=== PATIENT | male | born 1975 | race Caucasian/White ===

== ENCOUNTER 2019-06-12 14:33 | Emergency (ER) | payer SELFPAY ==
--- NOTE | 2019-06-12 14:45 | PDOC ---
History of Present Illness - General Chief Complaint: Alcohol intoxication Stated Complaint: ALCOHOL INTOXICATION - History of Present Illness Initial Comments: The pt is a 43M w/ no reported PMH who presents for evaluation of alcohol intoxication. The pt reports daily drinking for 1 month since his mother . He states he drinks tequila. Denies tobacco or illicit drug use. Denies withdrawal symptoms. Denies history of withdrawal or seizure. Pt states he drank 5 'large' bottles of tequila today. Pt denies fall but is unsure if he passed out today. Denies pain for physical complaints. 06/12/19 14:44 Past History - Past Medical History Allergies/Adverse Reactions: Allergies Allergy/AdvReac Type Severity Reaction Status Date / Time No Known Allergies Allergy Verified 06/12/19 19:58 Home Medications: Ambulatory Orders NK [No Known Home Medication] 06/12/19 Review of Systems - Review of Systems Able to Perform ROS?: Yes Comments:: GENERAL/CONSTITUTIONAL: No fever or chills. No weakness HEAD, EYES, EARS, NOSE AND THROAT: No change in vision. No change in hearing. No sore throat CARDIOVASCULAR: No chest pain or shortness of breath RESPIRATORY: Denies cough, hemoptysis GASTROINTESTINAL: No nausea, vomiting, diarrhea or constipation GENITOURINARY: No dysuria, frequency, or change in urination MUSCULOSKELETAL: No joint or muscle swelling or pain. No neck or back pain SKIN: No rash NEUROLOGIC: No headache, vertigo, loss of consciousness, or change in strength/ sensation ENDOCRINE: No increased thirst. No abnormal weight change HEMATOLOGIC/LYMPHATIC: No anemia, easy bleeding, or history of blood clots ALLERGIC/IMMUNOLOGIC: No hives or skin allergy 06/12/19 14:45 Is the patient limited Syriac proficient: No *Physical Exam - Physical Exam GENERAL: Awake, alert, and oriented to person/place/time, in no acute distress HEAD: No signs of trauma, normoc ephalic, atraumatic EYES: PERRLA, EOMI, sclera anicteric, conjunctiva clear ENT: Hearing grossly normal, nares patent, oropharynx clear without exudates. Moist mucosa LUNGS: No distress, speaks in full sentences, clear to auscultation bilaterally HEART: Regular rate and rhythm, normal S1 and S2, no murmurs appreciated, peripheral pulses normal and equal bilaterally ABDOMEN: Soft, nontender, normoactive bowel sounds. No guarding, no rebound EXTREMITIES: Normal inspection, Normal range of motion, no edema. No clubbing or cyanosis NEUROLOGICAL: Cranial nerves II through XII grossly intact. Normal speech, normal gait, no focal sensorimotor deficits SKIN: Warm, Dry 06/12/19 14:45 ED Treatment Course - LABORATORY CBC & Chemistry Diagram: 06/12/19 15:12 06/12/19 15:06 - RADIOLOGY Radiograph Interpretation: THIS IS A PRELIMINARY REPORT FROM [facility] DATE OF SERVICE: 2019-06-12 16:58:05 EXAM: CT HEAD WITHOUT CONTRAST IMPRESSION: No evidence of acute intracranial abnormality THIS IS A PRELIMINARY REPORT FROM [facility] DATE OF SERVICE: 2019-06-12 16:55:38 EXAM: CT Cervical Spine without IV contrast IMPRESSION: Motion artifact moderately limits evaluation of C5-C7. No acute fracture or subluxation in the cervical spine 06/12/19 17:50 RAD/CHEST PA & LAT There are no prior studies for comparison. There is a weak inspiratory effort with a normal mediastinum and clear lung verdugo. An acute process is not seen. The angles are sharp and the soft tissues are intact. There are some degenerative changes with wedging. Impression: Weak inspiration. Degenerative changes with wedging. 06/12/19 17:56 Medical Decision Making - Medical Decision Making The pt is a 43M w/ no reported PMH who presents for evaluation of alcohol intoxication. ED Course CMP, CBC, EtOH level ECG CT head and c-spine Pt states he would like detox 06/12/19 14:46 ECG w/ sinus tachycardia; HR 116; QTc 483; no axis deviation; no JUVENTINO No leukocytosis No anemia Hypokalemia noted and repleted Lytes otherwise unremarkable No BILLY LFTs wnl 06/12/19 16:41 CT head and c-spine w/o acute pathology UA pending 06/12/19 17:52 Pt given Tylenol 975mg PO once for fever Influenza sent 06/12/19 18:37 Plan for D/C to [facility] Discharge instructions and return precautions given Patient in agreement and verbalized understanding Dispo: Home Discharge - Discharge Information Problems reviewed: Yes Clinical Impression/Diagnosis: Alcohol intoxication Qualifiers: Complication of substance-induced condition: with unspecified complication Qualified Code(s): F10.929 - Alcohol use, unspecified with intoxication, unspecified Condition: Stable Disposition: HOME - Admission No - Follow up/Referral - Patient Discharge Instructions Patient Printed Discharge Instructions: DI for Alcohol Abuse, DI for Viral Syndrome Additional Instructions: You were seen in the Emergency Department for evaluation of alcohol intoxication. Your potassium was low and repleted. You likely have a viral syndrome. You may take Tylenol 650mg every 6 hours as needed for fever. Review the handout provided at discharge. Be sure to frequently wash your hands. Avoid close contact with young children, elderly, or weak immune system. Follow up with your primary care doctor within a week. Lo vieron en el departamento de emergencias para evaluar la intoxicacin por alcohol. Gama potasio estaba bajo y repleto. Es probable que tenga un sndrome viral. Puede senait Tylenol 650mg cada 6 horas segn sea necesario para la fiebre. Revise el folleto proporcionado al marissa. Asegrese de lavarse las abbie con frecuencia. Evite el contacto cercano con nios pequeos, ancianos o un sistema inmunitario dbil. [place] un seguimiento con gama mdico de atencin primaria dentro de [place] semana. Print Language: SETSWANA - Post Discharge Activity
[2019-06-12] MEDS ORDERED: SODIUM CHLORIDE 0.9% 500 ML INFUS.BAG IV ONE ×2 (15:06→18:02)
[2019-06-12 15:19] LABS: BASO % 0.4 % (0-2.0); EOS % 0.1 % (0-4.5); HEMATOCRIT 47.1 % (35.4-49); HEMOGLOBIN 15.9 GM/dL (11.7-16.9); LYMPH % 24.3 % (8-40); MCH 32.2 pg (25.7-33.7); MCHC 33.9 g/dl (32.0-35.9); MEAN CELL VOLUME 95.1 fl (80-96); MEAN PLT VOLUME 7.5 fl (7.5-11.1); MONO % 4.3 % (3.8-10.2); NEUT % 70.9 % (42.8-82.8); PLATELET COUNT 173 K/MM3 (134-434); RBC 4.95 M/mm3 (4.00-5.60); RDW 13.8 % (11.9-15.9); WHITE BLOOD COUNT 6.5 K/mm3 (4.0-10.0)
[2019-06-12 15:33] VITALS: BMI 24.8
[2019-06-12 15:51] LABS: ALBUMIN 4.5 g/dl (3.4-5.0); BILIRUBIN,TOTAL 0.6 mg/dL (0.2-1); BLOOD UREA NITROGEN 14.6 mg/dL (7-18); CALCIUM 8.5 mg/dL (8.5-10.1); CREATININE 0.9 mg/dL (0.55-1.3); POTASSIUM 3.3 mmol/L (3.5-5.1); TOT PROT 8.3 g/dl (6.4-8.2)
[2019-06-12] MEDS ORDERED: FOLIC ACID 1 MG TABLET (FP) PO ONE (15:59)
[2019-06-12] MEDS ORDERED: MULTIVITAMINS (DAILY MVI) TABLET (FP) PO ONE (15:59)
[2019-06-12] MEDS ORDERED: THIAMINE HCL 100 MG TABLET (FP) PO ONE (15:59)
--- NOTE | 2019-06-12 16:00 | PDOC ---
Documentation entered by Jayro Serrano SCRIBE, acting as scribe for Sylvia Chirinos MD. Sylvia Chirinos MD: This documentation has been prepared by the Zach blanco Daniel, SCRIBE, under my direction and personally reviewed by me in its entirety. I confirm that the documentation accurately reflects all work, treatment, procedures, and medical decision making performed by me. Attending Attestation - Resident Resident Name: Gavin Solorzano - ED Attending Attestation I have performed the following: I have examined & evaluated the patient, The case was reviewed & discussed with the resident, I agree w/resident's findings & plan, Exceptions are as noted - HPI HPI: 06/12/19 15:40 The patient is a 43 year old male with no past medical history here today for evaluation of alcohol intoxication. The patient reports that he has been drinking daily for 1 month due to the of his mother. He reports that his drink of choice is tequila and drinks 5 large bottles a day. He denies any withdrawal symptoms, seizures, tobacco use, or illicit drug use. pt is here today because he would like help with his drinking. Patient denies headache, lightheadedness. Denies fever, chills. Denies chest pain, shortness of breath. Denies nausea, vomiting, diarrhea, abdominal pain. Allergies: NKA 06/12/19 15:55 - Physicial Exam PE: 06/12/19 15:56 awake alert lungs clear bilat heart reg tachycardia. abd soft nt nd ext wwp. no edema. no calf tendereness. alert oriented x 3. - Medical Decision Making 06/12/19 15:56 43 yo male no pmhx here with one month heavy drinking daily tequila. denies other drug use. pt states denies fall, but unsure if he may have fainted. was found down by EMS. no other complaints. labs drawn and pending. pt innitially found to be tachycardic with heart rate of 130. states his last drink was just prior to arrival. ekg sinus tachycardia 116. will treat with thiamine, folate, multivitamin. will likely r/o electrolyte abnormality, tox screen possible transfer to [facility] for detox. cxr to r/o infection as low grade fever 100.1 06/12/19 16:01 etoh level 305, found to be hypokalemic 3.2 will give 40 meq kdur.
[2019-06-12] MEDS ORDERED: POTASSIUM CHLORIDE TABS 20 MEQ TABLET.ER (FP) PO ONE ×2 (16:01→16:05)
[2019-06-12] MEDS ORDERED: THIAMINE HCL 100 MG TABLET (FP) ONE (16:05)
[2019-06-12] MEDS ORDERED: FOLIC ACID 1 MG TABLET (FP) ONE (16:05)
[2019-06-12] MEDS ORDERED: ACETAMINOPHEN 325 MG TABLET (FP) PO ONE (18:02)
[2019-06-12] MEDS ORDERED: ACETAMINOPHEN 325 MG TABLET (FP) ONE (18:03)
[2019-06-12 18:11] VITALS: BP 153/94; PULSE 96; TEMP 100.9
--- NOTE | 2019-06-13 09:43 | EKG ---
Test Reason : Blood Pressure : / mmHG Vent. Rate : 116 BPM Atrial Rate : 116 BPM P-R Int : 138 ms QRS Dur : 084 ms QT Int : 348 ms P-R-T Axes : 044 071 026 degrees QTc Int : 483 ms SINUS TACHYCARDIA OTHERWISE NORMAL ECG NO PREVIOUS ECGS AVAILABLE Confirmed by BAILEY RODRIGUEZ MD ([id number]) on 06/13/2019 9:43:20 AM Referred By: Confirmed By:BAILEY RODRIGUEZ MD
== END 2019-06-12 18:50 | disposition home or self-care (01) ==
LOC: JER 14:33
DX: F10.220 Alcohol dependence with intoxication, uncomplicated (principal); Y90.8 Blood alcohol level of 240 mg/100 ml or more
CPT/HCPCS: 36415; 70450-TC; 71046-TC-FY; 72125-TC; 80053; 80307; 85025; 87804; 93005; 93010; 99283-25

== ENCOUNTER 2019-06-12 19:29 | Inpatient (IN) | payer SELFPAY ==
[2019-06-12 19:57] VITALS: BMI 24.8
--- NOTE | 2019-06-12 20:08 | HP ---
CIWA Score Nausea/Vomitin-Mild Nausea/No Vomiting Muscle Tremors: 5 Anxiety: 4-Mod. Anxious/Guarded Agitation: 4-Moderately Restless Paroxysmal Sweats: 3 Orientation: 3-Disoriented Date>2 days Tacttile Disturbances: 0-None Auditory Disturbances: 0-None Visual Disturbances: 3-Moderate Sensitivity (to lights) Headache: 0-None Present CIWA-Ar Total Score: 23 - Admission Criteria OASAS Guidelines: Admission for Medically Managed Detox: Requires at least one of the followin. CIWA greater than 12 2. Seizures within the past 24 hours 3. Delirium tremens within the past 24 hours 4. Hallucinations within the past 24 hours 5. Acute intervention needed for co occurring medical disorder 6. Acute intervention needed for co occurring psychiatric disorder 7. Severe withdrawal that cannot be handled at a lower level of care (continued vomiting, continued diarrhea, abnormal vital signs) requiring intravenous medication and/or fluids 8. Patient presents the following: CIWA greater than 12, Acute intervention needed for co-occurring med or psych disorder (referred by aleksandr after presenting with alcohol intoxication and elevated b/p) Admission Criteria Met: Admission criteria met Admitting History and Physical - Smoking History Smoking history: Never smoked Have you smoked in the past 12 months: No - Alcohol/Substance Use Hx Alcohol Use: No Admission ROS BHS - HPI Chief Complaint: referred for alcohol detox Allergies/Adverse Reactions: Allergies Allergy/AdvReac Type Severity Reaction Status Date / Time No Known Allergies Allergy Verified 06/12/19 19:58 History of Present Illness: here for alcohol detox. client is referred by aleksandr after biba for alcohol intoxication. he has since been medically cleared and referred. drinks daily but reports heavy binging for the past 1 month due of mother. 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 hx/o seizures as a child unrelated to alcohol. denies any significant clean time denies any other pmhx.. lives with friends, employed, denies legals Exam Limitations: Language Barrier (nepalese speaking) - Ebola screening Have you traveled outside of the country in the last 21 days: No (N) Have you had contact with anyone from an Ebola affected area: No - Review of Systems Constitutional: Chills, Loss of Appetite, Night Sweats, Changes in sleep EENT: reports: No Symptoms Reported Respiratory: reports: No Symptoms reported Cardiac: reports: No Symptoms Reported GI: reports: Nausea, Vomiting, Indigestion, Abdominal cramping : reports: No Symptoms Reported Musculoskeletal: reports: No Symptoms Reported Integumentary: reports: Flushing, Sweating Neuro: reports: Seizure (hx as a child), Tremors (r/t withdrawal) Endocrine: reports: No Symptoms Reported Hematology: reports: No Symptoms Reported Psychiatric: reports: No Sypmtoms Reported, Anxious, Depressed Other Systems: Reviewed and Negative Patient History - Patient Medical History Hx Anemia: No Hx Asthma: No Hx Chronic Obstructive Pulmonary Disease (COPD): No Hx Cancer: No Hx Cardiac Disorders: No Hx Congestive Heart Failure: No Hx Hypertension: No Hx Hypercholesterolemia: No Hx Pacemaker: No HX Cerebrovascular Accident: No Hx Seizures: Yes (as child) Hx Dementia: No Hx Diabetes: No Hx Gastrointestinal Disorders: Yes (gerd) Hx Liver Disease: No Hx Genitourinary Disorders: No Hx Sexually Transmitted Disorders: No Hx Renal Disease (ESRD): No Hx Thyroid Disease: No Hx Human Immunodeficiency Virus (HIV): No Hx Hepatitis C: No Hx Depression: No Hx Suicide Attempt: No Hx Bipolar Disorder: No Hx Schizophrenia: No Other Medical History: denies - Patient Surgical History Past Surgical History: No - PPD History Previous Implant?: Yes Documented Results: Negative w/o proof Implanted On Prior [facility] Admission?: No PPD to be Administered?: Yes - Smoking Cessation Smoking history: Former smoker Have you smoked in the past 12 months: No If you are a former smoker, when did you quit?: 20 Cigars Per Day: 0 Hx Chewing Tobacco Use: No Initiated information on smoking cessation: No - Substance & Tx. History Hx Alcohol Use: Yes Hx Substance Use: Yes Substance Use Type: Alcohol Hx Substance Use Treatment: No - Substances abused Alcohol Substance route: Oral Frequency: Daily Amount used: 5 BOTTLE VODKA 12OZ Age of first use: 33 Date of last use: 06/11/19 Admission Physical Exam BHS - Physical General Appearance: Yes: Moderate Distress (active vomitting, and dry heaving), Alcohol on Breath, Tremorous, Sweating, Anxious, Other (nepalese speaking) HEENTM: Yes: EOMI, Normocephalic, Normal Voice, ROSE[place]N, Pharynx Normal, Rhinorrhea Respiratory: Yes: Chest Non-Tender, Lungs Clear, Normal Breath Sounds, No Respiratory Distress, No Accessory Muscle Use Neck: Yes: No masses,lesions,Nodules, Supple, Trachea in good position Breast: Yes: Breasts Symetrical Cardiology: Yes: Regular Rhythm, S1, S2, Tachycardia Abdominal: Yes: Normal Bowel Sounds, Non Tender, Soft, Protuberent Genitourinary: Yes: Within Normal Limits Back: Yes: Normal Inspection Musculoskeletal: Yes: Other (unsteady gait) Extremities: Yes: Normal Range of Motion, Non-Tender, Tremors (tongue fasiculations also noted) Neurological: Yes: Alert, Motor Strength 5/5, Confused (about date), Depressed Affect Integumentary: Yes: Diaphoresis, Moist, Other (flushed) Lymphatic: Yes: Within Normal Limits - Diagnostic (1) Alcohol dependence with withdrawal, unspecified Current Visit: Yes Status: Acute Qualifiers: Complication of substance-induced condition: with unspecified complication Qualified Code(s): F10.239 - Alcohol dependence with withdrawal, unspecified (2) Fasciculation of tongue Current Visit: Yes Status: Acute (3) Risk for falls Current Visit: Yes Status: Acute (4) Irish speaking patient Current Visit: Yes Status: Chronic (5) Elevated blood pressure reading Current Visit: Yes Status: Acute (6) Alcohol intoxication Current Visit: Yes Status: Acute Qualifiers: Complication of substance-induced condition: with unspecified complication Qualified Code(s): F10.929 - Alcohol use, unspecified with intoxication, unspecified Comment: elevated b/p Cleared for Admission S - Detox or Rehab [facility] Level of Care: Medically Managed Detox Regimen/Protocol: Librium Claeared for Rehab Admission: No Breathalyzer - Breathalyzer Breathalyzer: 0.124 Urine Drug Screen - Test Device Lot number: [id number] Expiration date: 12/29/20 - Control Is test valid?: Yes - Results Drug screen NEGATIVE: Yes Inpatient Rehab Admission - Rehab Decision to Admit Inpatient rehab admission?: No
[2019-06-12] MEDS ORDERED: BISMUTH SUBSALICYLATE 524 MG/30 ML UD PO PRN (20:14)
[2019-06-12] MEDS ORDERED: METHOCARBAMOL 500 MG TABLET PO PRN (20:14)
[2019-06-12] MEDS ORDERED: MELATONIN 5 MG TABLETS PO PRN (20:14)
[2019-06-12] MEDS ORDERED: chlordiazePOXIDE HCL 25 MG CAPSULE PO ONE (20:14)
[2019-06-12] MEDS ORDERED: IBUPROFEN 400 MG TABLET (FP) PO PRN (20:14)
[2019-06-12] MEDS ORDERED: MAG HYDROX/AL HYDROX/SIMETH 30 ML UNIT-DOSE CUP PO PRN (20:14)
[2019-06-12] MEDS ORDERED: ACETAMINOPHEN 325 MG TABLET (FP) PO PRN ×2 (20:14)
[2019-06-12] MEDS ORDERED: DICYCLOMINE HCL 10 MG CAPSULE PO PRN (20:14)
[2019-06-12] MEDS ORDERED: MAGNESIUM HYDROX 2400MG/30ML ORAL SUSPENSION 30 ML CUP PO PRN (20:14)
[2019-06-12] MEDS ORDERED: MAGNESIUM CITRATE 300 ML BOTTLE PO PRN (20:14)
[2019-06-12] MEDS ORDERED: MENTHOL/PHENOL 1 EACH UD MM PRN (20:14)
[2019-06-12] MEDS ORDERED: guaiFENesin 200 MG/10 ML 10 ML UNIT-DOSE CUPS PO PRN (20:14)
[2019-06-12] MEDS ORDERED: P-EPHED 60MG/TRIPROLIDI 2.5MG TABLET PO PRN (20:14)
[2019-06-12] MEDS ORDERED: TRIMETHOBENZAMIDE HCL 200MG/2ML INJ IM PRN (20:18)
[2019-06-12] MEDS: cloNIDine HCL 0.1 MG TABLET PO PRN (20:56)
[2019-06-12] MEDS: PANTOPRAZOLE 20 MG TABLET PO SCH (20:58)
[2019-06-12] MEDS ORDERED: TRIMETHOBENZAMIDE HCL 200MG/2ML INJ IM ONE (21:00)
[2019-06-12] MEDS: chlordiazePOXIDE HCL 25 MG CAPSULE PO SCH (22:15)
[2019-06-12] MEDS: THIAMINE HCL 100 MG TABLET (FP) PO SCH (22:15)
[2019-06-12] MEDS: hydrOXYzine PAMOATE 25 MG CAPSULE (FP) PO PRN (23:11)
[2019-06-13] MEDS: chlordiazePOXIDE HCL 25 MG CAPSULE PO SCH ×4 (05:49→22:10)
[2019-06-13] MEDS: cloNIDine HCL 0.1 MG TABLET PO PRN ×2 (07:48→17:18)
--- NOTE | 2019-06-13 09:16 | CONSULT ---
[facility] Psychiatric Consult - Data Date of interview: 06/13/19 Admission source: PCP Identifying data: Mr Eden Catherine is a 43 years old [place] male, father of 4 children, domiciled seeking detox treatment alcohol Substance Abuse History: Reports history of alcohol use. Refer to addiction counselor's summary for further information Medical History: Significant for sizure disorder as a child, GERD. Psychiatric History: Denies history of previous psychiatric treatment. However, reports sleeping poorly Physical/Sexual Abuse/Trauma History: Denies history of abuse as a child or DV relationship as an adult Mental Status Exam - Mental Status Exam Alert and Oriented to: Time, Place, Person Cognitive Function: Fair Patient Appearance: Well Groomed Mood: Hopeful, Euthymic Patient Behavior: Cooperative Speech Pattern: Clear Voice Loudness: Normal Thought Process: Intact, Goal Oriented Thought Disorder: Not Present Hallucinations: Denies Suicidal Ideation: Denies Homicidal Ideation: Denies Insight/Judgement: Poor Sleep: Poorly Appetite: Good Muscle strength/Tone: Normal Gait/Station: Normal Psychiatric Findings - Problem List ([place] 1, 2,3) (1) Alcohol-induced sleep disorder Current Visit: Yes Status: Acute (2) Alcohol dependence with withdrawal, unspecified Current Visit: Yes Status: Acute Qualifiers: Complication of substance-induced condition: with unspecified complication Qualified Code(s): F10.239 - Alcohol dependence with withdrawal, unspecified (3) GERD (gastroesophageal reflux disease) Current Visit: Yes Status: Acute (4) Juvenile seizure disorder Current Visit: Yes Status: Resolved - Initial Treatment Plan Initial Treatment Plan: 1) Start Belsomra 10 mg po HS prn for insomnia. 2) Continue inpatient detoxification
[2019-06-13] MEDS: PRENATAL VITAMINS W/ FOLIC ACID TABLET (FP) PO SCH (10:12)
--- NOTE | 2019-06-13 11:37 | PN ---
S CIWA - CIWA Score Nausea/Vomitin-Mild Nausea/No Vomiting Muscle Tremors: 4-Moderate,w/Arms Extend Anxiety: 3 Agitation: 3 Paroxysmal Sweats: 2 Orientation: 2-Disoriented Date<2 days Tacttile Disturbances: 0-None Auditory Disturbances: 0-None Visual Disturbances: 1-Very Mild Sensitivity Headache: 2-Mild CIWA-Ar Total Score: 18 BHS Progress Note (SOAP) Subjective: 43 years old male admitted on 06/12/19 for alcool withdrawal sx management treating with librium detox regimen ate 10% breakfast ensure supplement Objective: 06/13/19 11:39 Vital Signs Temperature 99.0 F 06/13/19 09:23 Pulse Rate 96 H 06/13/19 09:23 Respiratory Rate 18 06/13/19 09:23 Blood Pressure 147/87 06/13/19 09:23 O2 Sat by Pulse Oximetry (%) Laboratory Last Values RPR Titer Nonreactive (NONREACTIVE) 06/13/19 08:00 06/13/19 11:41 lab see ER 06/12/19 report low K+ Assessment: 06/13/19 11:46 alcohol withdrawal Plan: librium regimen
[2019-06-13] MEDS ORDERED: POTASSIUM CHLORIDE ORAL LIQUID 20 MEQ/15 ML PO ONE (11:43)
[2019-06-13 12:17] LABS: EPI CELLS 1.9 /HPF (0-5/HPF); HYALINE CASTS 8 /lpf (0-8); URINE APPEARANCE CLEAR; URINE BACTERIA 2.4 /hpf (NEGATIVE); URINE BILIRUBIN 1+ (NEGATIVE); URINE COLOR DK YELLOW; URINE GLUCOSE (UA) NEGATIVE (NEGATIVE); URINE KETONE 3+ (NEGATIVE); URINE LEUK ESTERASE NEGATIVE (NEGATIVE); URINE NITRITE NEGATIVE (NEGATIVE); URINE PROTEIN 2+ (NEGATIVE); URINE WBC 1 /hpf (0-5)
[2019-06-13] MEDS: PANTOPRAZOLE 20 MG TABLET PO SCH (13:17)
[2019-06-13] MEDS: POTASSIUM CHLORIDE ORAL LIQUID 20 MEQ/15 ML PO SCH (13:17)
[2019-06-13] MEDS: chlordiazePOXIDE HCL 25 MG CAPSULE PO PRN (13:20)
[2019-06-13 14:17] LABS: URINE RBC 6.5 /hpf (0-4)
[2019-06-13 14:18] LABS: URINE CRYSTALS PRESENT /hpf
[2019-06-13] MEDS: THIAMINE HCL 100 MG TABLET (FP) PO SCH (22:10)
[2019-06-13] MEDS: SUVOREXANT 10 MG TABLET PO PRN (22:11)
[2019-06-14] MEDS: chlordiazePOXIDE HCL 25 MG CAPSULE PO SCH ×4 (05:29→22:00)
[2019-06-14] MEDS: POTASSIUM CHLORIDE ORAL LIQUID 20 MEQ/15 ML PO SCH (10:13)
[2019-06-14] MEDS: PRENATAL VITAMINS W/ FOLIC ACID TABLET (FP) PO SCH (10:13)
[2019-06-14] MEDS: PANTOPRAZOLE 20 MG TABLET PO SCH (10:13)
--- NOTE | 2019-06-14 12:44 | EKG ---
Test Reason : Blood Pressure : / mmHG Vent. Rate : 080 BPM Atrial Rate : 080 BPM P-R Int : 152 ms QRS Dur : 082 ms QT Int : 374 ms P-R-T Axes : 048 053 013 degrees QTc Int : 431 ms NORMAL SINUS RHYTHM NORMAL ECG Confirmed by MD MCCLELLAN GREGORY ([id number]) on 06/14/2019 12:44:15 PM Referred By: Confirmed By:LOR MCCLELLAN MD
--- NOTE | 2019-06-14 12:45 | EKG ---
Test Reason : Blood Pressure : / mmHG Vent. Rate : 089 BPM Atrial Rate : 089 BPM P-R Int : 144 ms QRS Dur : 090 ms QT Int : 404 ms P-R-T Axes : 047 055 040 degrees QTc Int : 491 ms POOR DATA QUALITY, INTERPRETATION MAY BE ADVERSELY AFFECTED NORMAL SINUS RHYTHM WITH SINUS ARRHYTHMIA PROLONGED QT ABNORMAL ECG Confirmed by MD VY, LOR ([id number]) on 06/14/2019 12:44:41 PM Referred By: TULIO Confirmed By:LOR MCCLELLAN MD
--- NOTE | 2019-06-14 13:01 | PN ---
S CIWA - CIWA Score Nausea/Vomitin-No Nausea/No Vomiting Muscle Tremors: 4-Moderate,w/Arms Extend Anxiety: 3 Agitation: 2 Paroxysmal Sweats: 2 Orientation: 0-Oriented Tacttile Disturbances: 0-None Auditory Disturbances: 0-None Visual Disturbances: 0-None Headache: 2-Mild CIWA-Ar Total Score: 13 BHS Progress Note (SOAP) Subjective: 43 years old male admitted on 06/12/19 for alcohol withdrawal sx management treating with librium detox regimen feeling ok today ate breakfast in day room social with peers long history of bp elevatin encourage clonidine 0.1 mg po prn Objective: 06/14/19 13:04 Vital Signs Temperature 98.7 F 06/14/19 09:10 Pulse Rate 108 H 06/14/19 09:10 Respiratory Rate 18 06/14/19 09:10 Blood Pressure 161/106 H 06/14/19 09:10 O2 Sat by Pulse Oximetry (%) Laboratory Last Values Urine Color Dk yellow 06/12/19 10:05 Urine Appearance Clear 06/12/19 10:05 Urine pH 7.0 (5.0-8.0) 06/12/19 10:05 Ur Specific [place] 1.027 (1.010-1.035) 06/12/19 10:05 Urine Protein 2+ (NEGATIVE) H 06/12/19 10:05 Urine Glucose (UA) Negative (NEGATIVE) 06/12/19 10:05 Urine Ketones 3+ (NEGATIVE) H 06/12/19 10:05 Urine Blood Negative (NEGATIVE) 06/12/19 10:05 Urine Nitrite Negative (NEGATIVE) 06/12/19 10:05 Urine Bilirubin 1+ (NEGATIVE) H 06/12/19 10:05 Urine Urobilinogen 1.0 mg/dL (0.2-1.0) 06/12/19 10:05 Ur Leukocyte Esterase Negative (NEGATIVE) 06/12/19 10:05 Urine WBC (Auto) 1 /hpf (0-5) 06/12/19 10:05 Urine RBC (Auto) 6.5 /hpf (0-4) 06/12/19 10:05 Urine Casts (Auto) 8 /lpf (0-8) 06/12/19 10:05 U Epithel Cells (Auto) 1.9 /HPF (0-5/HPF) 06/12/19 10:05 Urine Crystals (Auto) Present /hpf 06/12/19 10:05 Urine Bacteria (Auto) 2.4 /hpf (NEGATIVE) 06/12/19 10:05 RPR Titer Nonreactive (NONREACTIVE) 06/13/19 08:00 lab noted Assessment: 06/14/19 13:05 alcohol withdrawal hypertension Plan: librium regimen amlodipine 10 mg po daily
[2019-06-14] MEDS: amLODIPine BESYLATE 10 MG TABLET (FP) PO SCH (14:16)
[2019-06-14] MEDS: cloNIDine HCL 0.1 MG TABLET PO PRN (17:17)
[2019-06-14] MEDS: hydrOXYzine PAMOATE 25 MG CAPSULE (FP) PO PRN (17:19)
[2019-06-14] MEDS: SUVOREXANT 10 MG TABLET PO PRN (21:59)
[2019-06-14] MEDS: THIAMINE HCL 100 MG TABLET (FP) PO SCH (22:00)
[2019-06-14] MEDS: chlordiazePOXIDE HCL 25 MG CAPSULE PO PRN (22:00)
[2019-06-15] MEDS ORDERED: chlordiazePOXIDE HCL 10 MG CAPSULE PO PRN
[2019-06-15] MEDS: chlordiazePOXIDE HCL 10 MG CAPSULE PO SCH ×4 (06:23→22:18)
[2019-06-15] MEDS: amLODIPine BESYLATE 10 MG TABLET (FP) PO SCH (10:26)
[2019-06-15] MEDS: PANTOPRAZOLE 20 MG TABLET PO SCH (10:26)
[2019-06-15] MEDS: POTASSIUM CHLORIDE ORAL LIQUID 20 MEQ/15 ML PO SCH (10:26)
[2019-06-15] MEDS: PRENATAL VITAMINS W/ FOLIC ACID TABLET (FP) PO SCH (10:26)
--- NOTE | 2019-06-15 15:11 | PN ---
S CIWA - CIWA Score Nausea/Vomitin-Mild Nausea/No Vomiting Muscle Tremors: 3 Anxiety: 1-Mildly Anxious Agitation: 1-Slight > Activity Paroxysmal Sweats: 1-Minimal Palms Moist Orientation: 0-Oriented Tacttile Disturbances: 1-Very Mild Itch/Numbness Auditory Disturbances: 0-None Visual Disturbances: 0-None Headache: 0-None Present CIWA-Ar Total Score: 8 BHS Progress Note (SOAP) Subjective: interrupted sleep, sweats, shakes Objective: 06/15/19 15:09 Vital Signs Temperature 98.8 F 06/15/19 13:14 Pulse Rate 108 H 06/15/19 13:14 Respiratory Rate 06/15/19 13:14 Blood Pressure 133/90 06/15/19 13:14 O2 Sat by Pulse Oximetry (%) Laboratory Tests 06/12/19 06/13/19 10:05 08:00 Urine Color Dk yellow Urine Appearance Clear Urine pH 7.0 Ur Specific [place] 1.027 Urine Protein 2+ H Urine Glucose (UA) Negative Urine Ketones 3+ H Urine Blood Negative Urine Nitrite Negative Urine Bilirubin 1+ H Urine Urobilinogen 1.0 Ur Leukocyte Esterase Negative Urine WBC (Auto) 1 Urine RBC (Auto) 6.5 Urine Casts (Auto) 8 U Epithel Cells (Auto) 1.9 Urine Crystals (Auto) Present Urine Bacteria (Auto) 2.4 RPptR Titer Nonreactive 06/15/19 15:14 pt aox3 with mild shakes Assessment: 06/15/19 15:15 withdrawal sx's Plan: cont. detox increase fluids
[2019-06-15] MEDS: hydrOXYzine PAMOATE 25 MG CAPSULE (FP) PO PRN (20:59)
[2019-06-15] MEDS: SUVOREXANT 10 MG TABLET PO PRN (22:17)
[2019-06-15] MEDS: THIAMINE HCL 100 MG TABLET (FP) PO SCH (22:18)
[2019-06-16] MEDS: chlordiazePOXIDE HCL 10 MG CAPSULE PO SCH ×2 (05:50→17:21)
[2019-06-16] MEDS: PANTOPRAZOLE 20 MG TABLET PO SCH (10:13)
[2019-06-16] MEDS: PRENATAL VITAMINS W/ FOLIC ACID TABLET (FP) PO SCH (10:13)
[2019-06-16] MEDS: POTASSIUM CHLORIDE ORAL LIQUID 20 MEQ/15 ML PO SCH (10:13)
[2019-06-16] MEDS: amLODIPine BESYLATE 10 MG TABLET (FP) PO SCH (10:13)
--- NOTE | 2019-06-16 12:14 | PN ---
S CIWA - CIWA Score Nausea/Vomitin-No Nausea/No Vomiting Muscle Tremors: 2 Anxiety: 1-Mildly Anxious Agitation: 0-Normal Activity Paroxysmal Sweats: 1-Minimal Palms Moist Orientation: 0-Oriented Tacttile Disturbances: 0-None Auditory Disturbances: 0-None Visual Disturbances: 1-Very Mild Sensitivity Headache: 1-Very Mild CIWA-Ar Total Score: 6 BHS Progress Note (SOAP) Subjective: 43 years old male admitted on 06/12/19 for alcohol withdrawal sx management treating with librium detox regimen feeling better today less tremor mild anxiety slept through the night Objective: 06/16/19 12:12 Vital Signs Temperature 97.9 F 06/16/19 09:06 Pulse Rate 97 H 06/16/19 09:06 Respiratory Rate 18 06/16/19 09:06 Blood Pressure 140/92 06/16/19 09:06 O2 Sat by Pulse Oximetry (%) Laboratory Last Values Urine Color Dk yellow 06/12/19 10:05 Urine Appearance Clear 06/12/19 10:05 Urine pH 7.0 (5.0-8.0) 06/12/19 10:05 Ur Specific [place] 1.027 (1.010-1.035) 06/12/19 10:05 Urine Protein 2+ (NEGATIVE) H 06/12/19 10:05 Urine Glucose (UA) Negative (NEGATIVE) 06/12/19 10:05 Urine Ketones 3+ (NEGATIVE) H 06/12/19 10:05 Urine Blood Negative (NEGATIVE) 06/12/19 10:05 Urine Nitrite Negative (NEGATIVE) 06/12/19 10:05 Urine Bilirubin 1+ (NEGATIVE) H 06/12/19 10:05 Urine Urobilinogen 1.0 mg/dL (0.2-1.0) 06/12/19 10:05 Ur Leukocyte Esterase Negative (NEGATIVE) 06/12/19 10:05 Urine WBC (Auto) 1 /hpf (0-5) 06/12/19 10:05 Urine RBC (Auto) 6.5 /hpf (0-4) 06/12/19 10:05 Urine Casts (Auto) 8 /lpf (0-8) 06/12/19 10:05 U Epithel Cells (Auto) 1.9 /HPF (0-5/HPF) 01/12/20 10:05 Urine Crystals (Auto) Present /hpf 06/12/19 10:05 Urine Bacteria (Auto) 2.4 /hpf (NEGATIVE) 06/12/19 10:05 RPR Titer Nonreactive (NONREACTIVE) 06/13/19 08:00 lab noted bp elevation continue amlodipine 10 mg po daily addition lisinopril 5 mg po daily 06/16/19 12:13 K+ 3.3 received K+ supplement Assessment: 06/16/19 12:13 alcohol withdrawal Plan: librium regimen
[2019-06-16] MEDS: hydrOXYzine PAMOATE 25 MG CAPSULE (FP) PO PRN (17:21)
[2019-06-16] MEDS: SUVOREXANT 10 MG TABLET PO PRN (21:51)
[2019-06-16] MEDS: THIAMINE HCL 100 MG TABLET (FP) PO SCH (21:52)
[2019-06-16] MEDS ORDERED: LISINOPRIL 5 MG TABLET (FP) PO SCH (22:00)
[2019-06-17] MEDS ORDERED: chlordiazePOXIDE HCL 10 MG CAPSULE PO ONE (05:00)
[2019-06-17 06:57] VITALS: BP 132/86; PULSE 71; TEMP 97.6
--- NOTE | 2019-06-17 08:46 | DS ---
[facility] Detox Discharge Summary Admission Date: 06/12/19 Discharge Date: 06/17/19 - History Present History: Alcohol Dependence - Physical Exam Results Vital Signs: Vital Signs Temperature 97.6 F 06/17/19 06:57 Pulse Rate 71 06/17/19 06:57 Respiratory Rate 18 06/17/19 06:57 Blood Pressure 132/86 06/17/19 06:57 O2 Sat by Pulse Oximetry (%) - Treatment Hospital Course: Detox Protocol Followed, Detoxed Safely, Responded well, Discharged Condition Good - Medication Discharge Medications: Ambulatory Orders Amlodipine Besylate [Norvasc -] 10 mg PO DAILY #14 tablet 06/16/19 - Diagnosis (1) Alcohol dependence with withdrawal, unspecified Current Visit: Yes Status: Chronic Qualifiers: Complication of substance-induced condition: with unspecified complication Qualified Code(s): F10.239 - Alcohol dependence with withdrawal, unspecified (2) Elevated blood pressure reading Current Visit: Yes Status: Chronic (3) GERD (gastroesophageal reflux disease) Current Visit: Yes Status: Chronic Qualifiers: Esophagitis presence: without esophagitis Qualified Code(s): K21.9 - Gastro -esophageal reflux disease without esophagitis - AMA Did Patient Leave Against Medical Advice: No
[2019-06-17] MEDS: PANTOPRAZOLE 20 MG TABLET PO SCH (11:14)
[2019-06-17] MEDS: amLODIPine BESYLATE 10 MG TABLET (FP) PO SCH (11:14)
[2019-06-17] MEDS: PRENATAL VITAMINS W/ FOLIC ACID TABLET (FP) PO SCH (11:14)
== END 2019-06-17 09:44 | disposition home or self-care (01) | DRG 775 ==
LOC: YASAS 19:29 → Y3N 20:02
PROVIDERS: ADMIT Allergy & Immunology; ATTEND Allergy & Immunology
PROC: HZ2ZZZZ Detoxification Services for Substance Abuse Treatment (ICD-10-PCS; principal; 2019-06-12)
DX: F10.230 Alcohol dependence with withdrawal, uncomplicated (principal); F10.220 Alcohol dependence with intoxication, uncomplicated; F10.282 Alcohol dependence with alcohol-induced sleep disorder; E87.6 Hypokalemia; I10 Essential (primary) hypertension; K21.9 Gastro-esophageal reflux disease without esophagitis; R25.3 Fasciculation; Z86.69 Personal history of other diseases of the nervous system and sense organs; Z91.81 History of falling
CPT/HCPCS: 36415; 81003; 86593; 93005; 93010; J0735

== ENCOUNTER 2019-12-18 23:59 | Emergency (ER) | payer OTHER ==
[2019-12-19 00:19] VITALS: TEMP 98.1; BMI 24.5
--- NOTE | 2019-12-19 00:56 | PDOC ---
History of Present Illness - General Chief Complaint: Substance Abuse Stated Complaint: R/O ALCOHOL ABUSE Time Seen by Provider: 12/19/19 00:44 History Source: Patient Exam Limitations: No Limitations - History of Present Illness Initial Comments: 12/19/19 00:53 HPI: 44M PMH presenting with the complaint of wanting detox in setting of drinking for 7 days when thinking about his mother ( end of 2018). Patient endorses drinking for 6 days (vodka and tequila, does not quantify other than "bottles"), attempting to eat yesterday and experiencing nausea and vomiting. At present denies any medical complaints. States he wants detox, is a good jarad and just drinks too much. Denies chest pain, nausea at present, abdominal pain, fevers, chills, tremors. When he vomited yesterday denies any blood or bile. Poor PO tolerance for past week as he has only ingested ETOH. On chart review, previous visits to [facility] for detox, no significant periods of sobriety. No seizures from ETOH withdrawal, history of childhood seizures. NKDA Meds: Denies PMH: HTN PSH: Denies Past History - Travel History Traveled outside of the country in the last 30 days: No Close contact w/someone who was outside of country & ill: No - Medical History Allergies/Adverse Reactions: Allergies Allergy/AdvReac Type Severity Reaction Status Date / Time No Known Allergies Allergy Verified 12/19/19 00:11 Home Medications: Ambulatory Orders Amlodipine Besylate [Norvasc -] 10 mg PO DAILY #14 tablet 06/16/19 Pantoprazole Sodium [Protonix -] 20 mg PO DAILY #30 tablet.ec 06/17/19 Anemia: No Asthma: No Cancer: No Cardiac Disorders: No CVA: No COPD: No CHF: No Dementia: No Diabetes: No GI Disorders: Yes (gerd) Disorders: No HTN: No Hypercholesterolemia: No Liver Disease: No Seizures: Yes (as child) Thyroid Disease: No - Immunization History Immunization Up to Date: Yes - Psycho-Social/Smoking History Smoking History: Never smoked Have you smoked in the past 12 months: No If you are a former smoker, when did you quit?: 20 Cigars Per Day: 0 - Substance Abuse Hx (Audit-C & DAST Scrn) How often the patient has a drink containing alcohol: 2-4 times / month Number of drinks the patient has on a typical day: 7 to 9 How often the patient has six or more drinks on one occasion: Monthly Score: In Men: 4 or > Positive; In Women: 3 or > Positive: 7 Screen Result (Pos requires Nsg. Audit-10AR): Positive In the last yr the pt used illegal drug/Rx for NonMed reason: No Score: Yes response is considered Positive: 0 Screen Result (Positive result requires Nsg. DAST-10): Negative Review of Systems - Review of Systems Able to Perform ROS?: Yes Is the patient limited Kinyarwanda proficient: No Constitutional: No: Chills, Diaphoresis, Fever, Weakness HEENTM: No: Nose Pain, Nose Congestion, Throat Pain Respiratory: No: Cough, Shortness of Breath, Wheezing Cardiac (ROS): No: Chest Pain, Irregular Heart Rate, Lightheadedness, Palpitations, Syncope, Chest Tightness ABD/GI: Yes: Nausea, Poor Fluid Intake, Vomiting. No: Constipated, Diarrhea, Poor Appetite Musculoskeletal: No: Muscle Pain, Muscle Weakness Integumentary: No: Pallor, Pruritus, Rash Neurological: No: Headache, Numbness, Tingling, Weakness Psychiatric: No: Stressors, Change in Appetite Endocrine: No: Increased Thirst, Increased Urine Hematologic/Lymphatic: No: Anemia, Blood Clots, Easy Bleeding All Other Systems: Reviewed and Negative *Physical Exam - Vital Signs Last Vital Signs Temp Pulse Resp BP Pulse Ox 98.1 F 114 H 20 154/100 98 12/19/19 00:00 12/19/19 00:00 12/19/19 00:00 12/19/19 00:00 12/19/19 00:00 - Physical Exam 12/19/19 01:00 Vitals reviewed, AF, tachycardic to 110s GEN: Well appearing, appears stated age, NAD, comfortable. AAOx3. HEENT: NCAT, EOMI, PERRL. Sclera anicteric, non-injected. No facial asymmetry. Moist mucous membranes. Normal voice. Trachea midline. CV: Tachycardic, nl S1/S2, no murmurs / rubs / gallops appreciated. Non tender chest wall. LUNG: CTABL, normal work of breathing. No wheezes, rales, rhonchi. No cough. Speaking full sentences. GI: Soft, NTND, +BS, no guarding, no rebound. No masses. EXTREMITIES: 2+ distal pulses. No clubbing / cyanosis / edema. No gross deformity in any extremity. Non-tremulous. SKIN: Warm, dry, no rashes appreciated, non-jaundiced. PSYCH: Normal mood and affect. Cooperative and appropriate. Tearful affect when mentioning mother. NEURO: CN grossly intact. Moving all extremities well. Normal strength and sensation grossly. ED Treatment Course - LABORATORY CBC & Chemistry Diagram: 12/19/19 01:07 12/19/19 01:07 Medical Decision Making - Medical Decision Making 12/19/19 01:22 44M PMH presenting with the complaint of wanting detox in setting of drinking for 7 days when thinking about his mother ( end of 2018). No medical complaints. Grossly intoxicated on arrival. Hypertensive and tachycardic, 1L IVF ordered. Will provide antiemetic and PO challenge. Plan for detox at [facility]. - CBC, CMP, Lipase - Pepcid, Zofran - 1L IVF - PO Challenge - [facility] 12/19/19 02:09 Labs unremarkable Patient tolerating a sandwich and juice without issue HR improved to 90s with IVF administration Dispo: Discharge Send to [facility] Discharge - Discharge Information Problems reviewed: Yes Clinical Impression/Diagnosis: Alcohol intoxication Qualifiers: Complication of substance-induced condition: uncomplicated Qualified Code(s): F10.920 - Alcohol use, unspecified with intoxication, uncomplicated Condition: Fair Disposition: HOME - Admission No - Follow up/Referral - Patient Discharge Instructions Patient Printed Discharge Instructions: DI for Alcohol Abuse, DI for Drug or Alcohol Withdrawal Additional Instructions: Please proceed to [facility] for evaluation for admission to their Detox program. Good luck with your recovery. We are open 22/12 for anything you find concerning. Print Language: SERBIAN - Post Discharge Activity
[2019-12-19] MEDS ORDERED: SODIUM CHLORIDE 0.9% 500 ML INFUS.BAG IV ONE (00:59)
[2019-12-19] MEDS ORDERED: ONDANSETRON 4 MG/2 ML VIAL IVPUSH ONE (01:06)
[2019-12-19] MEDS ORDERED: FAMOTIDINE 20 MG/50 ML IVPB 20 MG/50 ML MG IVPB ONE ×2 (01:06→01:24)
--- NOTE | 2019-12-19 01:21 | PDOC ---
Documentation entered by Donald Harper SCRIBE, acting as scribe for Russell De La Torre MD. Russell De La Torre MD: This documentation has been prepared by the Meredith blanco Nirvannie, SCRIBE, under my direction and personally reviewed by me in its entirety. I confirm that the documentation accurately reflects all work, treatment, procedures, and medical decision making performed by me. Attending Attestation - Resident Resident Name: RonniBeni - ED Attending Attestation I have performed the following: I have examined & evaluated the patient, The case was reviewed & discussed with the resident, I agree w/resident's findings & plan, Exceptions are as noted - HPI HPI: 12/19/19 01:01 The patient is a 44 year old male with a history of alcohol abuse who presents to the ED requesting detox s/p 6 day alcohol binge. As per patient, he has been depressed since his mothers passing in May. He notes his current binge has been ongoing for the past 6 days and he has been drinking vodka daily. He notes one episode of emesis yesterday after attempting to eat. He denies any current nausea, vomiting, abdominal pain. Last drink was today. Denies any withdrawal symptoms currently. Allergies: NKDA - Physicial Exam PE: 12/19/19 01:23 "GENERAL: Awake, alert, and fully oriented, in no acute distress. HEAD: No signs of trauma EYES: PERRLA, EOMI, sclera anicteric, conjunctiva clear ENT: Auricles normal inspection, hearing grossly normal, nares patent, oropharynx clear without exudates. Moist mucosa NECK: Nontender, no stepoffs, Normal ROM, supple, no lymphadenopathy, JVD, or masses LUNGS: Breath sounds equal, clear to auscultation bilaterally. No wheezes, and no crackles HEART: Regular rate and rhythm, normal S1 and S2, no murmurs, rubs or gallops ABDOMEN: Soft, nontender, normoactive bowel sounds. No guarding, no rebound. No masses EXTREMITIES: Normal range of motion, no edema. No clubbing or cyanosis. No cords, erythema, or tenderness NEUROLOGICAL: Cranial nerves II through XII intact. 5/5 strength and sensation in all extremities, Normal speech, normal gait, normal cerebellar function SKIN: Warm, Dry, normal turgor, no rashes or lesions noted. - Medical Decision Making 12/19/19 01:23 44 M here requesting detox after ETOH binge. - Labs - PO challenge Discharge - Discharge Information Problems reviewed: Yes Clinical Impression/Diagnosis: Alcohol intoxication Qualifiers: Complication of substance-induced condition: uncomplicated Qualified Code(s): F10.920 - Alcohol use, unspecified with intoxication, uncomplicated Condition: Fair Disposition: TRANSFER ACUTE CARE/OTHER HOSP - Follow up/Referral - Patient Discharge Instructions Patient Printed Discharge Instructions: DI for Alcohol Abuse, DI for Drug or Alcohol Withdrawal Additional Instructions: Please proceed to [facility] for evaluation for admission to their Detox program. Good luck with your recovery. We are open 22/12 for anything you find concerning. Print Language: BULGARIAN - Post Discharge Activity
[2019-12-19 01:32] LABS: BASO % 0.5 % (0-2.0); EOS % 0.1 % (0-4.5); HEMATOCRIT 49.7 % (35.4-49); LYMPH % 11.6 % (8-40); MCH 31.9 pg (25.7-33.7); MCHC 34.3 g/dl (32.0-35.9); MEAN CELL VOLUME 93.1 fl (80-96); MEAN PLT VOLUME 7.5 fl (7.5-11.1); MONO % 4.4 % (3.8-10.2); NEUT % 83.4 % (42.8-82.8); PLATELET COUNT 347 K/MM3 (134-434); RBC 5.33 M/mm3 (4.00-5.60); RDW 13.7 % (11.9-15.9); WHITE BLOOD COUNT 9.7 K/mm3 (4.0-10.0)
[2019-12-19 02:02] LABS: ALBUMIN 4.5 g/dl (3.4-5.0); BILIRUBIN,TOTAL 0.4 mg/dL (0.2-1); BLOOD UREA NITROGEN 14.7 mg/dL (7-18); CALCIUM 9.4 mg/dL (8.5-10.1); TOT PROT 8.4 g/dl (6.4-8.2)
[2019-12-19 04:27] VITALS: BP 161/100; PULSE 99
== END 2019-12-19 03:35 | disposition short-term general hospital (02) ==
LOC: JER 23:59
PROC: 3E033GC Introduction of Other Therapeutic Substance into Peripheral Vein, Percutaneous Approach (ICD-10-PCS; principal; 2019-12-19)
DX: F10.920 Alcohol use, unspecified with intoxication, uncomplicated (principal)
CPT/HCPCS: 36415; 80053; 83690; 85025; 99284-25

== ENCOUNTER 2019-12-19 03:59 | Inpatient (IN) | payer OTHER ==
[2019-12-19 04:21] VITALS: BMI 25.4
--- NOTE | 2019-12-19 04:36 | HP ---
CIWA Score Nausea/Vomitin (vomiting x 2) Muscle Tremors: 3 Anxiety: 3 Agitation: 3 Paroxysmal Sweats: 3 Orientation: 1-Uncertain about Date Tacttile Disturbances: 0-None Auditory Disturbances: 0-None Visual Disturbances: 0-None Headache: 0-None Present CIWA-Ar Total Score: 15 - Admission Criteria [facility]ASAS Guidelines: Admission for Medically Managed Detox: Requires at least one of the followin. CIWA greater than 12 2. Seizures within the past 24 hours 3. Delirium tremens within the past 24 hours 4. Hallucinations within the past 24 hours 5. Acute intervention needed for co occurring medical disorder 6. Acute intervention needed for co occurring psychiatric disorder 7. Severe withdrawal that cannot be handled at a lower level of care (continued vomiting, continued diarrhea, abnormal vital signs) requiring intravenous medication and/or fluids 8. Admitting History and Physical - Smoking History Smoking history: Never smoked Have you smoked in the past 12 months: No If you are a former smoker, when did you quit?: 20 - Alcohol/Substance Use Hx Alcohol Use: Yes Admission ROS [facility] Chief Complaint: Seeking admission to detox from alcohol Allergies/Adverse Reactions: Allergies Allergy/AdvReac Type Severity Reaction Status Date / Time No Known Allergies Allergy Verified 12/19/19 00:11 History of Present Illness: 44 years old male with a 32 years of alcohol dependence is seeking admission to detox. This his 2nd admission to [facility] and he reports insignificant period of sobriety. He has medical history of GERD, Seizures, hypertension, psych. history of depression and denies suicidal ideation at this time. 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 Patient reports that he drinks 4 pints of vodka and tequila daily. He reports + eye mat linker, alcohol related seizures and blackouts. Exam Limitations: No Limitations - Ebola screening Have you traveled outside of the country in the last 21 days: No Have you had contact with anyone from an Ebola affected area: No Have you been sick,other than usual withdrawal symptoms: No Do you have a fever: No - Review of Systems Constitutional: Chills, Malaise, Night Sweats EENT: reports: No Symptoms Reported Respiratory: reports: No Symptoms reported Cardiac: reports: No Symptoms Reported GI: reports: Poor Appetite, Poor Fluid Intake, Vomiting, Abdominal cramping : reports: No Symptoms Reported Musculoskeletal: reports: No Symptoms Reported Integumentary: reports: Dryness, Flushing Neuro: reports: Tremors Endocrine: reports: No Symptoms Reported Hematology: reports: No Symptoms Reported Psychiatric: reports: Mood/Affect Appropiate, Orientated x3 Other Systems: Reviewed and Negative Patient History - Patient Medical History Hx Anemia: No Hx Asthma: No Hx Chronic Obstructive Pulmonary Disease (COPD): No Hx Cancer: No Hx Cardiac Disorders: No Hx Congestive Heart Failure: No Hx Hypertension: Yes (Amlodipie) Hx Hypercholesterolemia: No Hx Pacemaker: No HX Cerebrovascular Accident: No Hx Seizures: Yes (As child + alcohol related. Not on medication) Hx Dementia: No Hx Diabetes: No Hx Gastrointestinal Disorders: Yes (GERD -Pantoprazole) Hx Liver Disease: No Hx Genitourinary Disorders: No Hx Sexually Transmitted Disorders: No Hx Renal Disease (ESRD): No Hx Thyroid Disease: No Hx Human Immunodeficiency Virus (HIV): No Hx Hepatitis C: No Hx Depression: Yes (Not on medication) Hx Suicide Attempt: No Hx Bipolar Disorder: No Hx Schizophrenia: No - Patient Surgical History Past Surgical History: No - PPD History Previous Implant?: Yes Documented Results: Negative w/o proof Implanted On Prior [facility] Admission?: No PPD to be Administered?: Yes - Reproductive History Patient is a Female of Child Bearing Age (11 -55 yrs old): No (Male) - Smoking Cessation Smoking history: Never smoked Have you smoked in the past 12 months: No If you are a former smoker, when did you quit?: 20 Cigars Per Day: 0 Hx Chewing Tobacco Use: No Initiated information on smoking cessation: No - Substance & Tx. History Hx Alcohol Use: Yes Hx Substance Use: No Substance Use Type: Alcohol Hx Substance Use Treatment: Yes ([facility]) - Substances abused Alcohol Amount used: 4 PINTS VODKA Age of first use: 12 Date of last use: 12/18/19 Admission Physical Exam [facility] - Vital Signs Vital Signs: Vital Signs - 24 hr 12/19/19 04:16 Temperature 97.9 F Pulse Rate 131 H Respiratory 18 Rate Blood Pressure 171/112 H - Physical General Appearance: Yes: Moderate Distress, Tremorous, Irritable, Sweating, Anxious HEENTM: Yes: Within Normal Limits Respiratory: Yes: Lungs Clear, Normal Breath Sounds, No Respiratory Distress Neck: Yes: Within Normal Limits Breast: Yes: Breast Exam Deferred Cardiology: Yes: Tachycardia Abdominal: Yes: Normal Bowel Sounds Genitourinary: Yes: Within Normal Limits Back: Yes: Normal Inspection Musculoskeletal: Yes: Within Normal Limits Extremities: Yes: Tremors Neurological: Yes: Within Normal Limits Integumentary: Yes: Clammy Lymphatic: Yes: Within Normal Limits - Diagnostic (1) Alcohol dependence with withdrawal, uncomplicated Current Visit: Yes Status: Acute (2) GERD (gastroesophageal reflux disease) Current Visit: Yes Status: Chronic Qualifiers: Esophagitis presence: without esophagitis Qualified Code(s): K21.9 - Gastro-esophageal reflux disease without esophagitis (3) Hypertension Current Visit: Yes Status: Chronic Qualifiers: Hypertension type: essential hypertension Qualified Code(s): I10 - Essential (primary) hypertension (4) Depression Current Visit: Yes Status: Chronic Qualifiers: Depression Type: unspecified Qualified Code(s): F32.9 - Major depressive disorder, single episode, unspecified (5) Alcohol related seizure Current Visit: Yes Status: Chronic Cleared for Admission [facility] - Detox or Rehab [facility] Level of Care: Medically Managed Detox Regimen/Protocol: Librium Claeared for Rehab Admission: No Breathalyzer - Breathalyzer Breathalyzer: 0.082 Urine Drug Screen - Test Device Lot number: [id number] Expiration date: 01/29/21 - Control Is test valid?: Yes - Results Drug screen NEGATIVE: Yes Inpatient Rehab Admission - Rehab Decision to Admit Inpatient rehab admission?: No
[2019-12-19] MEDS ORDERED: MAGNESIUM CITRATE 300 ML BOTTLE PO PRN (04:56)
[2019-12-19] MEDS ORDERED: BISMUTH SUBSALICYLATE 524 MG/30 ML UD PO PRN (04:56)
[2019-12-19] MEDS ORDERED: MENTHOL/PHENOL 1 EACH UD MM PRN (04:56)
[2019-12-19] MEDS ORDERED: MAG HYDROX/AL HYDROX/SIMETH 30 ML UNIT-DOSE CUP PO PRN (04:56)
[2019-12-19] MEDS ORDERED: ONDANSETRON *ODT* 4 MG TABLET SL ONE (04:56)
[2019-12-19] MEDS ORDERED: IBUPROFEN 400 MG TABLET (FP) PO PRN (04:56)
[2019-12-19] MEDS ORDERED: MAGNESIUM HYDROX 2400MG/30ML ORAL SUSPENSION 30 ML CUP PO PRN (04:56)
[2019-12-19] MEDS ORDERED: METHOCARBAMOL 500 MG TABLET PO PRN (04:56)
[2019-12-19] MEDS ORDERED: ACETAMINOPHEN 325 MG TABLET (FP) PO PRN ×2 (04:56)
[2019-12-19] MEDS ORDERED: chlordiazePOXIDE HCL 25 MG CAPSULE PO PRN ×2 (04:59→10:33)
--- NOTE | 2019-12-19 06:42 | PN ---
[facility] Progress Note Note: Patient's blood pressure this morning is B/P 162/119. He complains of headache Vital Signs Temperature 99.3 F 12/19/19 05:42 Pulse Rate 126 H 12/19/19 05:42 Respiratory Rate 18 12/19/19 05:42 Blood Pressure 162/119 H 12/19/19 05:42 O2 Sat by Pulse Oximetry (%) 95 12/19/19 05:42 Action: Clonidine HCL 0.1mg tablet oral ordered
[2019-12-19] MEDS ORDERED: cloNIDine HCL 0.1 MG TABLET PO ONE ×3 (07:20→21:56)
[2019-12-19] MEDS: PANTOPRAZOLE 20 MG TABLET PO SCH (07:27)
--- NOTE | 2019-12-19 09:29 | EKG ---
Test Reason : Blood Pressure : / mmHG Vent. Rate : 112 BPM Atrial Rate : 112 BPM P-R Int : 150 ms QRS Dur : 090 ms QT Int : 334 ms P-R-T Axes : 050 069 018 degrees QTc Int : 455 ms SINUS TACHYCARDIA OTHERWISE NORMAL ECG WHEN COMPARED WITH ECG OF 13-JUN-2019 23:08, NO SIGNIFICANT CHANGE WAS FOUND Confirmed by Antonieta Andrade ([id number]) on 12/19/2019 9:29:14 AM Referred By: BEN Confirmed By:Antonieta Andrade
[2019-12-19] MEDS: amLODIPine BESYLATE 10 MG TABLET (FP) PO SCH (10:06)
[2019-12-19] MEDS: PRENATAL VITAMINS W/ FOLIC ACID TABLET (FP) PO SCH (10:06)
--- NOTE | 2019-12-19 10:41 | CONSULT ---
[facility] Psychiatric Consult - Data Date of interview: 12/19/19 Admission source: [facility] Identifying data: Revisit to [facility] and admission to [address] [place] [address] (reconfigured for detoxification services) for this 44 y/o [place] male, self-referred for detoxification treatment. DIYA issue : alcohol. 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 Substance Abuse History: Discussed with the patient. DIYA profile as follows : Smoking history: Never smoked. Have you smoked in the past 12 months: No. If you are a former smoker, when did you quit?: 20. Cigars Per Day: 0. Hx Chewing Tobacco Use: No. Initiated information on smoking cessation: No. - Substance & Tx. History. Hx Alcohol Use: Yes. Hx Substance Use: No. Substance Use Type: Alcohol. Hx Substance Use Treatment: Yes ([facility]). - Substances abused. Al cohol. Amount used: 4 PINTS VODKA. Age of first use: 12. Date of last use: 12/18/19 Medical History: Medical profile is remarkable for GERD and a distant history of seizure disorder(during childhood). Psychiatric History: Patient denies history of psychiatric hospitalizations, OPD care or suicide attempts. Physical/Sexual Abuse/Trauma History: Patient denies. Additional Comment: Negative toxicology. Mental Status Exam - Mental Status Exam Alert and Oriented to: Time, Place, Person Cognitive Function: Good Patient Appearance: Well Groomed (small stature) Mood: Withdrawn Affect: Mood Congruent, Constricted Patient Behavior: Fatigued, Appropriate, Cooperative Speech Pattern: Clear, Appropriate (communicates better in korean) Voice Loudness: Normal Thought Process: Intact, Goal Oriented Thought Disorder: Not Present Hallucinations: Denies Suicidal Ideation: Denies Homicidal Ideation: Denies Insight/Judgement: Poor Sleep: Poorly, Difficulty falling asleep Appetite: Good Gait/Station: Normal Psychiatric Findings - Problem List ([place] 1, 2,3) (1) Alcohol dependence with withdrawal, uncomplicated Status: Acute (2) Insomnia Status: Chronic - Initial Treatment Plan Initial Treatment Plan: Psychoeducation. Sleep hygiene. Detoxification. Insomnia is addressed with belsomra 10 mg po hs prn. Side effects/benefits discussed with the patient. Consent (verbal) given. Observation.
[2019-12-19] MEDS ORDERED: chlordiazePOXIDE HCL 25 MG CAPSULE PO ONE ×2 (11:00→15:00)
[2019-12-19] MEDS: hydrOXYzine PAMOATE 25 MG CAPSULE (FP) PO PRN ×2 (13:35→22:21)
--- NOTE | 2019-12-19 13:39 | PN ---
S CIWA - CIWA Score Nausea/Vomitin-No Nausea/No Vomiting Muscle Tremors: 4-Moderate,w/Arms Extend Anxiety: 5 Agitation: 3 Paroxysmal Sweats: 1-Minimal Palms Moist Orientation: 0-Oriented Tacttile Disturbances: 0-None Auditory Disturbances: 0-None Visual Disturbances: 0-None Headache: 0-None Present CIWA-Ar Total Score: 13 [facility] Progress Note (SOAP) Subjective: On reviewing pt's visit, it's apparent that pt was referred from [facility] ER after presenting there last night. See below for ER note. Medical Decision Making - Medical Decision Making 12/19/19 01:22 44M PMH presenting with the complaint of wanting detox in setting of drinking for 7 days when thinking about his mother ( end of 2018). No medical complaints. Grossly intoxicated on arrival. Hypertensive and tachycardic, 1L IVF ordered. Will provide antiemetic and PO challenge. Plan for detox at [facility]. - CBC, CMP, Lipase - Pepcid, Zofran - 1L IVF - PO Challenge - [facility] 12/19/19 02:09 Labs unremarkable Patient tolerating a sandwich and juice without issue HR improved to 90s with IVF administration Dispo: Discharge Send to [facility] Detox Note: Pt is a 44 y/o male admitted to detox for alcohol withdrawal sx. saw pt this morning on the unit ambulating on hallway with steady gait. On Librium taper regimen. Hx of HTN, Alcohol related seizures, GERD. Psych-Depression. Anxiety tremors nausea/vomiting intermittent sleep Denies C/P Denies Headache Objective: 12/19/19 13:44 Vital Signs - 24 hr 12/19/19 12/19/19 12/19/19 04:16 05:42 09:31 Temperature 97.9 F 99.3 F 98.7 F Pulse Rate 131 H 126 H 100 H Respiratory 18 18 18 Rate Blood Pressure 171/112 H 162/119 H 168/103 H O2 Sat by Pulse 95 95 Oximetry (%) 12/19/19 12:52 Temperature 98.2 F Pulse Rate 126 H Respiratory 18 Rate Blood Pressure 172/115 H O2 Sat by Pulse 96 Oximetry (%) Laboratory Tests 12/19/19 12/19/19 08:15 08:15 Sickle Cell Screen Negative Syphilis Serology Non-reactive Labs were done at [facility] Covid-19 done and result pending Alert o x3 nad oob ambulating with steady gait Assessment: 12/19/19 13:54 severe withdrawal sx Plan: cont detox increase po fluids maintain safety clonidine 0.1 mg po now
[2019-12-19] MEDS ORDERED: cloNIDine HCL 0.1 MG TABLET PO PRN (14:52)
--- NOTE | 2019-12-19 14:52 | PN ---
[facility] Progress Note Note: elevated Bp denies chest pain, dizziness or headache Vital Signs - 24 hr 12/19/19 12/19/19 12/19/19 04:16 05:42 09:31 Temperature 97.9 F 99.3 F 98.7 F Pulse Rate 131 H 126 H 100 H Respiratory 18 18 18 Rate Blood Pressure 171/112 H 162/119 H 168/103 H O2 Sat by Pulse 95 95 Oximetry (%) 12/19/19 12/19/19 12:52 14:40 Temperature 98.2 F Pulse Rate 126 H 121 H Respiratory 18 18 Rate Blood Pressure 157/112 H 158/103 H O2 Sat by Pulse 96 Oximetry (%) Give Librium 50 mg po x 1 now clonidine 0.1 mg po TID Prn for elevated BP
[2019-12-19] MEDS: chlordiazePOXIDE HCL 25 MG CAPSULE PO SCH ×2 (18:07→22:21)
[2019-12-19] MEDS: THIAMINE HCL 100 MG TABLET (FP) PO SCH (22:21)
[2019-12-19] MEDS: MELATONIN 5 MG TABLETS PO SCH (22:21)
[2019-12-19] MEDS ORDERED: chlordiazePOXIDE HCL 25 MG CAPSULE PO SCH (23:00)
[2019-12-20] MEDS: chlordiazePOXIDE HCL 25 MG CAPSULE PO SCH ×4 (06:18→22:11)
[2019-12-20] MEDS: PANTOPRAZOLE 20 MG TABLET PO SCH (06:18)
--- NOTE | 2019-12-20 09:47 | PN ---
S CIWA - CIWA Score Nausea/Vomitin-No Nausea/No Vomiting (Diarrhea) Muscle Tremors: 3 Anxiety: 3 Agitation: 3 Paroxysmal Sweats: 1-Minimal Palms Moist Orientation: 0-Oriented Tacttile Disturbances: 0-None Auditory Disturbances: 0-None Visual Disturbances: 0-None Headache: 0-None Present CIWA-Ar Total Score: 10 [facility] Progress Note (SOAP) Subjective: Pt oob and reports withdrawal sx better than yesterday. c/o diarrhea tremors anxiety Objective: 12/20/19 09:46 Vital Signs - 24 hr 12/19/19 12/19/19 12/19/19 12:52 14:40 21:25 Temperature 98.2 F 98.3 F Pulse Rate 126 H 121 H 105 H Respiratory 18 18 18 Rate Blood Pressure 157/112 H 158/103 H 162/11 L O2 Sat by Pulse 96 97 Oximetry (%) 12/19/19 12/20/19 23:54 06:15 Temperature 97.7 F Pulse Rate 101 H 66 Respiratory 18 Rate Blood Pressure 151/103 H 145/90 O2 Sat by Pulse 97 Oximetry (%) Laboratory Tests 12/19/19 12/19/19 08:15 08:15 Sickle Cell Screen Negative Syphilis Serology Non-reactive alert o x 3 nad oob ambulating with steady gait Assessment: 12/20/19 09:47 withdrawal sx Plan: continue detox increase po fluids maintain safety
[2019-12-20 10:02] LABS: HEMATOCRIT 42.4 % (35.4-49); HEMOGLOBIN 14.8 GM/dL (11.7-16.9); MCH 32.7 pg (25.7-33.7); MCHC 34.8 g/dl (32.0-35.9); MEAN CELL VOLUME 93.8 fl (80-96); MEAN PLT VOLUME 8.2 fl (7.5-11.1); PLATELET COUNT 204 K/MM3 (134-434); RBC 4.52 M/mm3 (4.00-5.60); RDW 13.6 % (11.9-15.9); WHITE BLOOD COUNT 4.4 K/mm3 (4.0-10.0)
[2019-12-20 10:31] LABS: ALBUMIN 3.8 g/dl (3.4-5.0); BILIRUBIN,TOTAL 0.8 mg/dL (0.2-1); BLOOD UREA NITROGEN 10.4 mg/dL (7-18); CALCIUM 8.9 mg/dL (8.5-10.1); POTASSIUM 3.1 mmol/L (3.5-5.1); TOT PROT 7.3 g/dl (6.4-8.2)
[2019-12-20] MEDS: PRENATAL VITAMINS W/ FOLIC ACID TABLET (FP) PO SCH (10:34)
[2019-12-20] MEDS: amLODIPine BESYLATE 10 MG TABLET (FP) PO SCH (10:34)
[2019-12-20] MEDS: MELATONIN 5 MG TABLETS PO SCH (22:11)
[2019-12-20] MEDS: THIAMINE HCL 100 MG TABLET (FP) PO SCH (22:11)
[2019-12-20] MEDS: hydrOXYzine PAMOATE 25 MG CAPSULE (FP) PO PRN (22:11)
[2019-12-21] MEDS ORDERED: chlordiazePOXIDE HCL 25 MG CAPSULE PO SCH (05:00)
[2019-12-21] MEDS: chlordiazePOXIDE HCL 25 MG CAPSULE PO SCH ×4 (06:18→22:13)
[2019-12-21] MEDS: PANTOPRAZOLE 20 MG TABLET PO SCH (06:21)
[2019-12-21] MEDS: hydrOXYzine PAMOATE 25 MG CAPSULE (FP) PO PRN ×2 (06:21→18:31)
[2019-12-21] MEDS: amLODIPine BESYLATE 10 MG TABLET (FP) PO SCH (10:04)
[2019-12-21] MEDS: PRENATAL VITAMINS W/ FOLIC ACID TABLET (FP) PO SCH (10:04)
--- NOTE | 2019-12-21 12:20 | PN ---
S CIWA - CIWA Score Nausea/Vomitin-No Nausea/No Vomiting Muscle Tremors: 3 Anxiety: 3 Agitation: 0-Normal Activity Paroxysmal Sweats: 1-Minimal Palms Moist Orientation: 0-Oriented Tacttile Disturbances: 0-None Auditory Disturbances: 0-None Visual Disturbances: 0-None Headache: 0-None Present CIWA-Ar Total Score: 7 BHS Progress Note (SOAP) Subjective: Reports detox proceeding well. slight anxiety tremors no nausea or vomiting Objective: 12/21/19 12:23 Vital Signs - 24 hr 12/20/19 12/20/19 12/20/19 14:00 18:01 21:53 Temperature 97.5 F L Pulse Rate 74 92 H 91 H Respiratory 18 18 18 Rate Blood Pressure 125/79 158/97 140/89 O2 Sat by Pulse 98 97 97 Oximetry (%) 12/21/19 12/21/19 05:55 09:25 Temperature 97.3 F L 97.3 F L Pulse Rate 66 103 H Respiratory 18 18 Rate Blood Pressure 143/92 152/99 O2 Sat by Pulse 97 97 Oximetry (%) Laboratory Tests 12/19/19 12/19/19 12/19/19 08:15 08:15 Unknown WBC RBC Hgb Hct MCV MCH MCHC RDW Plt Count MPV Sickle Cell Screen Negative Sodium Potassium Chloride Carbon Dioxide Anion Gap BUN Creatinine Est GFR (CKD-EPI)AfAm Est GFR (CKD-EPI)NonAf Random Glucose Calcium Total Bilirubin AST ALT Alkaline Phosphatase Total Protein Albumin Syphilis Serology Non-reactive COVID-19 (JOSHUA) Not detected 12/20/19 12/20/19 07:50 07:50 WBC 4.4 RBC 4.52 Hgb 14.8 Hct 42.4 MCV 93.8 MCH 32.7 MCHC 34.8 RDW 13.6 Plt Count 204 D MPV 8.2 Sickle Cell Screen Sodium 139 Potassium 3.1 L Chloride 101 Carbon Dioxide 28 Anion Gap 10 BUN 10.4 Creatinine 1.0 Est GFR (CKD-EPI)AfAm 104.88 Est GFR (CKD-EPI)NonAf 90.49 Random Glucose 131 H Calcium 8.9 Total Bilirubin 0.8 AST 33 ALT 49 Alkaline Phosphatase 74 Total Protein 7.3 Albumin 3.8 Syphilis Serology COVID-19 (JOSHUA) covid-19 not detected alert o x 3 nad oob ambulating with staedy gait Assessment: 12/21/19 12:24 withdrawal sx Hypokalemia Plan: continue detox increase po fluids maintain safety kdur 20 meq po bid, 1st dose now
[2019-12-21] MEDS ORDERED: POTASSIUM CHLORIDE TABS 20 MEQ TABLET.ER (FP) PO ONE (12:30)
[2019-12-21] MEDS: MELATONIN 5 MG TABLETS PO SCH (22:13)
[2019-12-21] MEDS: POTASSIUM CHLORIDE TABS 20 MEQ TABLET.ER (FP) PO SCH (22:13)
[2019-12-21] MEDS: cloNIDine HCL 0.1 MG TABLET PO PRN (22:14)
[2019-12-21] MEDS: THIAMINE HCL 100 MG TABLET (FP) PO SCH (22:14)
[2019-12-22] MEDS ORDERED: chlordiazePOXIDE HCL 10 MG CAPSULE PO PRN ×2
[2019-12-22] MEDS: cloNIDine HCL 0.1 MG TABLET PO PRN ×2 (02:05→17:17)
[2019-12-22] MEDS ORDERED: chlordiazePOXIDE HCL 10 MG CAPSULE PO SCH (05:00)
[2019-12-22] MEDS: PANTOPRAZOLE 20 MG TABLET PO SCH (06:47)
[2019-12-22] MEDS: chlordiazePOXIDE HCL 10 MG CAPSULE PO SCH ×4 (06:48→22:15)
--- NOTE | 2019-12-22 09:53 | PN ---
S Progress Note (SOAP) Subjective: Pt reported to provider during rounds that he fell last night about 1:00 A.M. Reports was getting out of bed and fell on right knee. Reports pain to right knee, scale of 9/10. Denies head involvement. Denies headache,dizziness, nausea or vomiting today. As per nurse Katie Isbell, fall was not witnessed by staff. Objective: 12/22/19 09:49 Vital Signs - 24 hr 12/21/19 12/21/19 12/21/19 13:35 16:25 20:25 Temperature 97.5 F L 98 F 97.6 F Pulse Rate 107 H 97 H 94 H Respiratory 18 20 18 Rate Blood Pressure 149/85 145/95 153/87 O2 Sat by Pulse 97 96 Oximetry (%) 12/22/19 12/22/19 01:45 05:58 Temperature 97.3 F L Pulse Rate 99 H 62 Respiratory 18 18 Rate Blood Pressure 168/116 H 127/87 O2 Sat by Pulse 97 Oximetry (%) Active Medications Generic Name Dose Route Start Last Admin Trade Name Freq PRN Reason Stop Dose Admin Acetaminophen 650 mg 12/19/19 04:56 Tylenol - PO Q6H PRN PAIN LEVEL 4 - 6 Acetaminophen 650 mg 12/19/19 04:56 Tylenol - PO Q6H PRN FEVER Al Hydroxide/Mg Hydroxide 30 ml 12/19/19 04:56 12/19/19 07:40 Mylanta Oral Suspension - PO 30 ml Q6H PRN Administration DYSPEPSIA Amlodipine Besylate 10 mg 12/19/19 10:00 12/21/19 10:04 Norvasc - PO 10 mg DAILY GLORIA Administration Bismuth Subsalicylate 524 mg 12/19/19 04:56 Pepto-Bismol - PO Q1H PRN DIARRHEA Chlordiazepoxide HCl 10 mg 12/22/19 05:00 12/22/19 06:48 Librium - PO 12/22/19 23:01 10 mg [id number] GLORIA Administration Chlordiazepoxide HCl 10 mg 12/23/19 05:00 Librium - PO 12/23/19 17:01 Q12H GLORIA Chlordiazepoxide HCl 10 mg 12/22/19 00:00 Librium - PO 12/23/19 00:00 Q4H PRN WITHDRAWAL(CONT SUBST) Chlordiazepoxide HCl 10 mg 12/24/19 05:00 Librium - PO 12/24/19 05:01 ONCE@0500 ONE Clonidine 0.1 mg 12/19/19 14:54 12/22/19 02:05 Catapres - PO 0.1 mg TID PRN Administration WITHDRAWAL(CONT SUBST) Eucalyptus/Menthol/Phenol/Sorbitol 1 each 12/19/19 04:56 Cepastat Lozenge - MM 12/25/19 04:56 Q4H PRN SORE THROAT Hydroxyzine Pamoate 25 mg 12/19/19 04:56 12/21/19 18:31 Vistaril - PO 12/25/19 04:56 25 mg Q4HWA PRN Administration ANXIETY Ibuprofen 400 mg 12/19/19 04:56 Motrin - PO Q6H PRN PAIN LEVEL 1 - 3 Magnesium Citrate 300 ml 12/19/19 04:56 Citroma - PO Q48H PRN CONSTIPATION Magnesium Hydroxide 30 ml 12/19/19 04:56 Milk Of Magnesia - PO PRN PRN CONSTIPATION Melatonin 5 mg 12/19/19 22:00 12/21/19 22:13 Melatonin PO 5 mg HS GLORIA Administration Methocarbamol 500 mg 12/19/19 04:56 Robaxin - PO 12/25/19 04:56 Q6H PRN MUSCLE SPASMS Methyl Salicylate 1 applic 12/22/19 10:00 Michael-Malhotra - TP BID GLORIA Pantoprazole Sodium 20 mg 12/19/19 07:00 12/22/19 06:47 Protonix - PO 20 mg DAILY@0700 GLORIA Administration Potassium Chloride 20 meq 12/21/19 22:00 12/21/19 22:13 K-Dur - PO 20 meq BID GLORIA Administration Multivit/Folic Acid/Iron 1 tab 12/19/19 10:00 12/21/19 10:04 Vitamins (Sjr) - PO 1 tab DAILY GLORIA Administration Thiamine HCl 100 mg 12/19/19 22:00 12/21/19 22:14 Vitamin B1 - PO 100 mg HS GLORIA Administration Alert o x 3 heent:normocephalic, perrla,eomi,pinna atruamatic cardiac:s1 s2, rrr lungs:ctab extremities:no edema,bruise or cuts; skin intact bilaterally Assessment: 12/22/19 09:51 Fall Plan: Analgesic balm TP apply to right knee BID XRay Right knee as directed SHARONA bandage apply to right knee as needed while awake Fall protocol #1 since fall was not witnessed by staff Transfer to [facility] for evaluation and necessary scans/treatment. Pt may return to [facility] after evaluation/treatment and clearance. Report given to Dr. Mcgrath at the [facility] ER and informed her to call [facility] at ext. [phone] and/or [address] at ext. [phone] when patient ready to return to [facility].
--- NOTE | 2019-12-22 09:56 | PN ---
[facility] CIWA - CIWA Score Nausea/Vomitin-No Nausea/No Vomiting Muscle Tremors: 3 Anxiety: 5 ("nervous") Agitation: 3 Paroxysmal Sweats: No Perspiration Orientation: 0-Oriented Tacttile Disturbances: 0-None Auditory Disturbances: 0-None Visual Disturbances: 0-None Headache: 0-None Present CIWA-Ar Total Score: 11 S Progress Note (SOAP) Subjective: Pt seen in rounds ambulating with steady gait but with slight limp. Reports fal ling las night-see note below and nurse's note. Reports "nervous" anxiety/ slight irritability slight tremors Objective: 12/22/19 10:28 Vital Signs - 24 hr 12/21/19 12/21/19 12/21/19 13:35 16:25 20:25 Temperature 97.5 F L 98 F 97.6 F Pulse Rate 107 H 97 H 94 H Respiratory 18 20 18 Rate Blood Pressure 149/85 145/95 153/87 O2 Sat by Pulse 97 96 Oximetry (%) 12/22/19 12/22/19 12/22/19 01:45 05:58 09:40 Temperature 97.3 F L 98.2 F Pulse Rate 99 H 62 88 Respiratory 18 18 20 Rate Blood Pressure 168/116 H 127/87 130/86 O2 Sat by Pulse 97 Oximetry (%) Laboratory Tests 12/19/19 12/19/19 12/19/19 08:15 08:15 Unknown WBC RBC Hgb Hct MCV MCH MCHC RDW Plt Count MPV Sickle Cell Screen Negative Sodium Potassium Chloride Carbon Dioxide Anion Gap BUN Creatinine Est GFR (CKD-EPI)AfAm Est GFR (CKD-EPI)NonAf Random Glucose Calcium Total Bilirubin AST ALT Alkaline Phosphatase Total Protein Albumin Syphilis Serology Non-reactive COVID-19 (JOSHUA) Not detected 12/20/19 12/20/19 07:50 07:50 WBC 4.4 RBC 4.52 Hgb 14.8 Hct 42.4 MCV 93.8 MCH 32.7 MCHC 34.8 RDW 13.6 Plt Count 204 D MPV 8.2 Sickle Cell Screen Sodium 139 Potassium 3.1 L Chloride 101 Carbon Dioxide 28 Anion Gap 10 BUN 10.4 Creatinine 1.0 Est GFR (CKD-EPI)AfAm 104.88 Est GFR (CKD-EPI)NonAf 90.49 Random Glucose 131 H Calcium 8.9 Total Bilirubin 0.8 AST 33 ALT 49 Alkaline Phosphatase 74 Total Protein 7.3 Albumin 3.8 Syphilis Serology COVID-19 (JOSHUA) Alert o x 3 nad oob ambulating with steady gait Assessment: 12/22/19 10:29 withdrawal sx on/off elevated BP Plan: cont detox increase po fluids maintain safety Repeat K+ in A.m FBS by BGM in A.M x 1 Transfer to [facility] ER as per protocol #1
[2019-12-22] MEDS: amLODIPine BESYLATE 10 MG TABLET (FP) PO SCH (10:53)
[2019-12-22] MEDS: POTASSIUM CHLORIDE TABS 20 MEQ TABLET.ER (FP) PO SCH ×2 (10:53→22:15)
[2019-12-22] MEDS: PRENATAL VITAMINS W/ FOLIC ACID TABLET (FP) PO SCH (10:53)
[2019-12-22] MEDS: METHYL SALICYLATE/MENTHOL OINT 30 GM TUBE TP SCH ×2 (13:35→22:14)
--- NOTE | 2019-12-22 16:59 | PN ---
[facility] Progress Note Note: Pt was sent to [facility] for evaluation post fall (unwitnessed). Pt was evaluated in ED, Right knee X-ray negative for fracture. CT of head was also negative for bleeding. Pt seen and examined, alert and oriented x 3. Denies any knee pain or headache. Still with mild withdrawal symptoms. Pt returned back to the unit ( [address]) to complete detox protocol. Laboratory Last Values WBC 4.4 K/mm3 (4.0-10.0) 12/20/19 07:50 RBC 4.52 M/mm3 (4.00-5.60) 12/20/19 07:50 Hgb 14.8 GM/dL (11.7-16.9) 12/20/19 07:50 Hct 42.4 % (35.4-49) 12/20/19 07:50 MCV 93.8 fl (80-96) 12/20/19 07:50 MCH 32.7 pg (25.7-33.7) 12/20/19 07:50 MCHC 34.8 g/dl (32.0-35.9) 12/20/19 07:50 RDW 13.6 % (11.9-15.9) 12/20/19 07:50 Plt Count 204 K/MM3 (134-434) D 12/20/19 07:50 MPV 8.2 fl (7.5-11.1) 12/20/19 07:50 Sickle Cell Screen Negative (NEGATIVE) 12/19/19 08:15 Sodium 139 mmol/L (136-145) 12/20/19 07:50 Potassium 3.1 mmol/L (3.5-5.1) L 12/20/19 07:50 Chloride 101 mmol/L (98-107) 12/20/19 07:50 Carbon Dioxide 28 mmol/L (21-32) 12/20/19 07:50 Anion Gap 10 MMOL/L (8-16) 12/20/19 07:50 BUN 10.4 mg/dL (7-18) 12/20/19 07:50 Creatinine 1.0 mg/dL (0.55-1.3) 12/20/19 07:50 Est GFR (CKD-EPI)AfAm 104.88 12/20/19 07:50 Est GFR (CKD-EPI)NonAf 90.49 12/20/19 07:50 Random Glucose 131 mg/dL (74-106) H 12/20/19 07:50 Calcium 8.9 mg/dL (8.5-10.1) 12/20/19 07:50 Total Bilirubin 0.8 mg/dL (0.2-1) 12/20/19 07:50 AST 33 U/L (15-37) 12/20/19 07:50 ALT 49 U/L (13-61) 12/20/19 07:50 Alkaline Phosphatase 74 U/L (45-117) 12/20/19 07:50 Total Protein 7.3 g/dl (6.4-8.2) 12/20/19 07:50 Albumin 3.8 g/dl (3.4-5.0) 12/20/19 07:50 Syphilis Serology Non-reactive (NONREACTIVE) 12/19/19 08:15 COVID-19 (JOSHUA) Not detected (Not Detected) 12/19/19 Unknown Vital Signs 12/22/19 09:40 Temperature 98.2 F Pulse Rate 88 Respiratory 20 Rate Blood Pressure 130/86
[2019-12-22] MEDS: hydrOXYzine PAMOATE 25 MG CAPSULE (FP) PO PRN ×2 (17:17→22:15)
[2019-12-22] MEDS: THIAMINE HCL 100 MG TABLET (FP) PO SCH (22:14)
[2019-12-22] MEDS: MELATONIN 5 MG TABLETS PO SCH (22:15)
[2019-12-23] MEDS ORDERED: chlordiazePOXIDE HCL 10 MG CAPSULE PO SCH (05:00)
[2019-12-23] MEDS: PANTOPRAZOLE 20 MG TABLET PO SCH (06:34)
[2019-12-23] MEDS: chlordiazePOXIDE HCL 10 MG CAPSULE PO SCH ×2 (06:35→18:04)
[2019-12-23] MEDS: amLODIPine BESYLATE 10 MG TABLET (FP) PO SCH (10:14)
[2019-12-23] MEDS: hydrOXYzine PAMOATE 25 MG CAPSULE (FP) PO PRN ×3 (10:14→21:47)
[2019-12-23] MEDS: METHYL SALICYLATE/MENTHOL OINT 30 GM TUBE TP SCH ×2 (10:14→21:46)
[2019-12-23] MEDS: PRENATAL VITAMINS W/ FOLIC ACID TABLET (FP) PO SCH (10:16)
[2019-12-23] MEDS: POTASSIUM CHLORIDE TABS 20 MEQ TABLET.ER (FP) PO SCH ×2 (10:16→21:47)
--- NOTE | 2019-12-23 12:49 | PN ---
S CIWA - CIWA Score Nausea/Vomitin-No Nausea/No Vomiting Muscle Tremors: 3 Anxiety: 2 Agitation: 0-Normal Activity Paroxysmal Sweats: No Perspiration Orientation: 0-Oriented Tacttile Disturbances: 0-None Auditory Disturbances: 0-None Visual Disturbances: 0-None Headache: 0-None Present CIWA-Ar Total Score: 5 BHS Progress Note (SOAP) Subjective: Pt was seen sleeping comfortably during rounds. Pt woke up at medication time and seen ambulating at the nursing station/hallway. Reports decreased withdrawal sx and denies pain. Slight tremors sl anxiety Objective: 12/23/19 12:46 Vital Signs - 24 hr 12/22/19 12/22/19 12/23/19 17:05 20:18 01:40 Temperature 97.5 F L 98.2 F 97.3 F L Pulse Rate 86 97 H 76 Respiratory 18 18 18 Rate Blood Pressure 164/108 H 130/79 131/85 O2 Sat by Pulse 97 Oximetry (%) 12/23/19 12/23/19 12/23/19 01:53 06:36 09:43 Temperature 97.3 F L 97.3 F L 97.5 F L Pulse Rate 76 68 77 Respiratory 18 18 18 Rate Blood Pressure 131/85 112/72 122/79 O2 Sat by Pulse 93 L 98 98 Oximetry (%) Laboratory Tests 12/19/19 12/19/19 12/19/19 08:15 08:15 Unknown WBC RBC Hgb Hct MCV MCH MCHC RDW Plt Count MPV Sickle Cell Screen Negative Sodium Potassium Chloride Carbon Dioxide Anion Gap BUN Creatinine Est GFR (CKD-EPI)AfAm Est GFR (CKD-EPI)NonAf Random Glucose Calcium Total Bilirubin AST ALT Alkaline Phosphatase Total Protein Albumin Syphilis Serology Non-reactive COVID-19 (JOSHUA) Not detected 12/20/19 12/20/19 12/23/19 07:50 07:50 08:15 WBC 4.4 RBC 4.52 Hgb 14.8 Hct 42.4 MCV 93.8 MCH 32.7 MCHC 34.8 RDW 13.6 Plt Count 204 D MPV 8.2 Sickle Cell Screen Sodium 139 Potassium 3.1 L 3.8 Chloride 101 Carbon Dioxide 28 Anion Gap 10 BUN 10.4 Creatinine 1.0 Est GFR (CKD-EPI)AfAm 104.88 Est GFR (CKD-EPI)NonAf 90.49 Random Glucose 131 H Calcium 8.9 Total Bilirubin 0.8 AST 33 ALT 49 Alkaline Phosphatase 74 Total Protein 7.3 Albumin 3.8 Syphilis Serology COVID-19 (JOSHUA) Alert o x 3 nad oob ambulating with steady gait Assessment: 12/23/19 12:47 withdrawal sx Plan: cont detox increase po fluids maintain safety last dose of librium 10 mg po at 5:00 a.m in the morning. Provider to Evaluate pt and may discharge if medically stable.
[2019-12-23] MEDS: THIAMINE HCL 100 MG TABLET (FP) PO SCH (21:47)
[2019-12-23] MEDS: MELATONIN 5 MG TABLETS PO SCH (21:47)
[2019-12-23] MEDS: cloNIDine HCL 0.1 MG TABLET PO PRN (22:03)
[2019-12-24] MEDS ORDERED: chlordiazePOXIDE HCL 10 MG CAPSULE PO ONE ×2 (05:00)
[2019-12-24] MEDS: PANTOPRAZOLE 20 MG TABLET PO SCH (06:12)
[2019-12-24] MEDS: hydrOXYzine PAMOATE 25 MG CAPSULE (FP) PO PRN (10:07)
[2019-12-24] MEDS: METHYL SALICYLATE/MENTHOL OINT 30 GM TUBE TP SCH (10:07)
[2019-12-24] MEDS: POTASSIUM CHLORIDE TABS 20 MEQ TABLET.ER (FP) PO SCH (10:08)
[2019-12-24] MEDS: amLODIPine BESYLATE 10 MG TABLET (FP) PO SCH (10:08)
[2019-12-24] MEDS: PRENATAL VITAMINS W/ FOLIC ACID TABLET (FP) PO SCH (10:10)
--- NOTE | 2019-12-24 10:26 | DS ---
[facility] Detox Discharge Summary Admission Date: 12/19/19 Discharge Date: 12/24/19 - History Present History: Alcohol Dependence Additional Comments: Patient seen and examined, alert and oriented x3. In no acute respiratory distress. Full ROM, ambulating on the unit without any assistance. Skin warm to touch, no lesions noted. Detox completed, pt stable to be discharge today. Pertinent Past History: History of GERD, HTN, Seizure, Depression and alcohol use disorder. - Physical Exam Results Vital Signs: Vital Signs Temperature 97.7 F 12/24/19 06:54 Pulse Rate 72 12/24/19 06:54 Respiratory Rate 18 12/24/19 06:54 Blood Pressure 113/71 12/24/19 06:54 O2 Sat by Pulse Oximetry (%) 96 12/24/19 06:54 Vital Signs 12/24/19 06:54 Temperature 97.7 F Pulse Rate 72 Respiratory 18 Rate Blood Pressure 113/71 O2 Sat by Pulse 95 Oximetry (%) Laboratory Last Values WBC 4.4 K/mm3 (4.0-10.0) 12/20/19 07:50 RBC 4.52 M/mm3 (4.00-5.60) 12/20/19 07:50 Hgb 14.8 GM/dL (11.7-16.9) 12/20/19 07:50 Hct 42.4 % (35.4-49) 12/20/19 07:50 MCV 93.8 fl (80-96) 12/20/19 07:50 MCH 32.7 pg (25.7-33.7) 12/20/19 07:50 MCHC 34.8 g/dl (32.0-35.9) 12/20/19 07:50 RDW 13.6 % (11.9-15.9) 12/20/19 07:50 Plt Count 204 K/MM3 (134-434) D 12/20/19 07:50 MPV 8.2 fl (7.5-11.1) 12/20/19 07:50 Sickle Cell Screen Negative (NEGATIVE) 12/19/19 08:15 Sodium 139 mmol/L (136-145) 12/20/19 07:50 Potassium 3.8 mmol/L (3.5-5.1) 12/23/19 08:15 Chloride 101 mmol/L (98-107) 12/20/19 07:50 Carbon Dioxide 28 mmol/L (21-32) 12/20/19 07:50 Anion Gap 10 MMOL/L (8-16) 12/20/19 07:50 BUN 10.4 mg/dL (7-18) 12/20/19 07:50 Creatinine 1.0 mg/dL (0.55-1.3) 12/20/19 07:50 Est GFR (CKD-EPI)AfAm 104.88 12/20/19 07:50 Est GFR (CKD-EPI)NonAf 90.49 12/20/19 07:50 POC Glucometer 132 UNITS (80-120) 12/24/19 06:29 Random Glucose 131 mg/dL (74-106) H 12/20/19 07:50 Calcium 8.9 mg/dL (8.5-10.1) 12/20/19 07:50 Total Bilirubin 0.8 mg/dL (0.2-1) 12/20/19 07:50 AST 33 U/L (15-37) 12/20/19 07:50 ALT 49 U/L (13-61) 12/20/19 07:50 Alkaline Phosphatase 74 U/L (45-117) 12/20/19 07:50 Total Protein 7.3 g/dl (6.4-8.2) 12/20/19 07:50 Albumin 3.8 g/dl (3.4-5.0) 12/20/19 07:50 Syphilis Serology Non-reactive (NONREACTIVE) 12/19/19 08:15 COVID-19 (JOSHUA) Not detected (Not Detected) 12/19/19 Unknown Labs noted. Pertinent Admission Physical Exam Findings: Withdrawal symptoms. - Treatment Hospital Course: Detox Protocol Followed, Detoxed Safely, Responded well, Discharged Condition Good - Medication Discharge Medications: Ambulatory Orders Amlodipine Besylate [Norvasc -] 10 mg PO DAILY #14 tablet 06/16/19 Pantoprazole Sodium [Protonix -] 20 mg PO DAILY #30 tablet.ec 06/17/19 - Diagnosis (1) Alcohol dependence with withdrawal, uncomplicated Current Visit: Yes Status: Acute (2) GERD (gastroesophageal reflux disease) Current Visit: Yes Status: Chronic Qualifiers: Esophagitis presence: without esophagitis Qualified Code(s): K21.9 - Gastro-esophageal reflux disease without esophagitis (3) Hypertension Current Visit: Yes Status: Chronic Qualifiers: Hypertension type: essential hypertension Qualified Code(s): I10 - Essential (primary) hypertension (4) Fall Current Visit: No Status: Chronic Qualifiers: Encounter type: initial encounter Qualified Code(s): W19.XXXA - Unspecified fall, initial encounter - AMA Did Patient Leave Against Medical Advice: No
[2019-12-24 13:46] VITALS: BP 145/95; PULSE 92; TEMP 97.5
== END 2019-12-24 14:55 | disposition home or self-care (01) | DRG 775 ==
LOC: YASAS 03:59 → Y5N DETOX 04:45
PROVIDERS: ADMIT Allergy & Immunology; ATTEND Allergy & Immunology
PROC: HZ2ZZZZ Detoxification Services for Substance Abuse Treatment (ICD-10-PCS; principal; 2019-12-19)
DX: F10.230 Alcohol dependence with withdrawal, uncomplicated (principal); F32.9 Major depressive disorder, single episode, unspecified; I10 Essential (primary) hypertension; K21.9 Gastro-esophageal reflux disease without esophagitis; E87.6 Hypokalemia; G47.00 Insomnia, unspecified; R00.0 Tachycardia, unspecified; M25.561 Pain in right knee; W06.XXXA Fall from bed, initial encounter; Y93.89 Activity, other specified; Y92.230 Patient room in hospital as the place of occurrence of the external cause; Y99.8 Other external cause status; Z86.69 Personal history of other diseases of the nervous system and sense organs
CPT/HCPCS: 36415; 70450-TC; 73562-TC-RT-FY; 80053; 82962; 84132; 85027; 85660; 86780; 93005; 93010; J0735; Q0162; U0003

== ENCOUNTER 2019-12-22 11:33 | Emergency (ER) | payer OTHER ==
[2019-12-22 11:43] VITALS: PULSE 86; BMI 25.1
--- NOTE | 2019-12-22 12:56 | PDOC ---
History of Present Illness - General Chief Complaint: Injury Stated Complaint: FALL - History of Present Illness Initial Comments: 44 yo male with PMH of alcohol dependence and withdrawal presents after a fall at the detox center. He was getting up at 1am from bed to have nursing check his BP when he fell. He denies loss of consciousness and head trauma. He attributes the fall to having received Librium for the last 3 days at the detox center. He was admitted 3 days ago from the ED after a 6 day alcohol binge. He endorses right knee pain that he sustained during the fall but was able to ambulate. He denies blurry vision, ataxia, nausea, vomiting, cp, sob. 12/22/19 13:00 Past History - Medical History Allergies/Adverse Reactions: Allergies Allergy/AdvReac Type Severity Reaction Status Date / Time No Known Allergies Allergy Verified 12/22/19 11:40 Home Medications: Ambulatory Orders Amlodipine Besylate [Norvasc -] 10 mg PO DAILY #14 tablet 06/16/19 Pantoprazole Sodium [Protonix -] 20 mg PO DAILY #30 tablet.ec 06/17/19 Anemia: No Asthma: No Cancer: No Cardiac Disorders: No CVA: No COPD: No CHF: No Dementia: No Diabetes: No GI Disorders: No Disorders: No HTN: Yes Hypercholesterolemia: No Kidney Stones: No Liver Disease: No Seizures: No Thyroid Disease: No - Surgical History Abdominal Surgery: No Appendectomy: No Cardiac Surgery: No Cholecystectomy: No Lung Surgery: No Neurologic Surgery: No Orthopedic Surgery: No - Reproductive History Testicular Surgery: No - Immunization History Immunization Up to Date: Yes - Psycho-Social/Smoking History Smoking History: Never smoked Have you smoked in the past 12 months: No If you are a former smoker, when did you quit?: 20 Cigars Per Day: 0 - Substance Abuse Hx (Audit-C & DAST Scrn) How often the patient has a drink containing alcohol: Never Score: In Men: 4 or > Positive; In Women: 3 or > Positive: 0 Screen Result (Pos requires Nsg. Audit-10AR): Negative In the last yr the pt used illegal drug/Rx for NonMed reason: No Score: Yes response is considered Positive: 0 Screen Result (Positive result requires Nsg. DAST-10): Negative Review of Systems - Review of Systems Able to Perform ROS?: Yes Constitutional: No: Chills, Fever, Weakness HEENTM: No: Blurred Vision, Double Vision Respiratory: No: Cough, Orthopnea, Shortness of Breath Cardiac (ROS): No: Chest Pain, Irregular Heart Rate, Palpitations, Chest Tightness ABD/GI: No: Constipated, Nausea, Poor Appetite, Vomiting : No: Burning, Dysuria Musculoskeletal: No: Back Pain, Muscle Pain Integumentary: No: Dryness, Erythema, Flushing, Lesions Neurological: No: Seizure, Tingling, Ataxia Psychiatric: No: Anxiety, Depression, Emotional Problems Endocrine: No: Intolerance to Cold, Intolerance to Heat, Unexplained Weight Gain *Physical Exam - Vital Signs Last Vital Signs Temp Pulse Resp BP Pulse Ox 98.2 F 86 17 134/83 99 12/22/19 11:40 12/22/19 11:40 12/22/19 11:40 12/22/19 11:40 12/22/19 11:40 - Physical Exam General Appearance: Yes: Appropriately Dressed. No: Apparent Distress, Disheveled, Alcohol on Breath HEENT: positive: EOMI, ROSELYN, Normal Voice Neck: negative: Tender, Rigid Respiratory/Chest: positive: Lungs Clear, Normal Breath Sounds. negative: Respiratory Distress Cardiovascular: positive: Regular Rhythm, Regular Rate, S1, S2. negative: Edema Gastrointestinal/Abdominal: positive: Flat, Soft. negative: Tender Musculoskeletal: positive: Other (pain to palpation of right knee). negative: Decreased Range of Motion Extremity: positive: Normal Range of Motion, Tender Integumentary: positive: Normal Color, Dry, Warm Neurologic: positive: Fully Oriented, Alert, Normal Mood/Affect Medical Decision Making - Medical Decision Making 44 yo male with PMH of alcohol abuse presents 12 hours after an unwitnessed fall at the detox facility. He has been on librium for the last 3 days for alcohol withdrawal which is most likely the cause of the fall. Patient refused a lab workup and therefore we canceled cmp, cbc, troponins even after we discussed with him the importance of needing to rule out any other abnormalities for his potential syncope. Right knee x-ray was negative. CT head scan is negative. Pt will return to [facility] for continuation of his rehab. 12/22/19 15:24 Discharge - Discharge Information Problems reviewed: Yes Clinical Impression/Diagnosis: Fall Condition: Stable Disposition: [facility] - Admission No - Follow up/Referral - Patient Discharge Instructions Patient Printed Discharge Instructions: DI for Alcohol Abuse, Drug and Alcohol Withdrawal Additional Instructions: We were unable to complete a full workup due to refusal of blood work. Continue your detox program at [facility] and maintain adequate hydration and nutrition. Return to the ED if condition worsens or persist (example: fainting, lightheadedness, headaches, nausea, vomiting, tremors, seizures, persistent or worsening knee pain). - Post Discharge Activity
--- NOTE | 2019-12-22 13:13 | PDOC ---
Documentation entered by Willa Cooper SCRIBE, acting as scribe for Ari Smith MD. Ari Smith MD: This documentation has been prepared by the Kenneth blanco Xhesika, SCRIBE, under my direction and personally reviewed by me in its entirety. I confirm that the documentation accurately reflects all work, treatment, procedures, and medical decision making performed by me. Attending Attestation - Resident Resident Name: Maria Del Carmen Johnson - ED Attending Attestation I have performed the following: I have examined & evaluated the patient, The case was reviewed & discussed with the resident, I agree w/resident's findings & plan, Exceptions are as noted - HPI HPI: 12/22/19 12:14 The patient is a 44 year old male with a history of alcohol abuse who presents to the ED BIBA from [facility] s/p fall. Pt states he was getting out of bed to get his vitals checked when he fell. Pt denies any LOC or head injuries. Allergies: NKDA - Physicial Exam PE: 12/22/19 13:12 Vitals: Triage Vital signs reviewed General Appearance: No acute distress, well nourished well developed, Head: Atraumatic, Eyes: Pupils equal reactive round, extraocular movement intact Neck: Supple; no Nucal rigidity Chest Wall: Nontender Cardiac: Regular rate and rhythym, no murmurs, no rubs, no gallops, Lungs: Clear to auscultation bilateral, good air movement bilaterally, Abdomen: Soft, non distended, normal bowel sounds, non tender to palpation Extremities: Full range of motion to all extremities, no cyanosis, clubbing, or edema Skin: Warm and dry, no rashes or lesions, no rash, no petechiae Neuro: AOX3; cranial Nerves 2-12 grossly intact, strength intact to all extremities, sensation intact to all extremities, gait normal Psych: Normal mood, normal affect - Medical Decision Making 12/22/19 13:13 Patient sent from [facility] secondary to unwitnessed fall patient denies head trauma given protocol head CT ordered No evidence of trauma on exam normal neurologic examination patient ambulating comfortably no complaints at this time Discharge - Discharge Information Problems reviewed: Yes Clinical Impression/Diagnosis: Fall Qualifiers: Encounter type: initial encounter Qualified Code(s): W19.XXXA - Unspecified fall, initial encounter Condition: Stable Disposition: [facility] - Follow up/Referral - Patient Discharge Instructions Patient Printed Discharge Instructions: DI for Alcohol Abuse, Drug and Alcohol Withdrawal Additional Instructions: We were unable to complete a full workup due to refusal of blood work. Continue your detox program at [facility] and maintain adequate hydration and nutrition. Return to the ED if condition worsens or persist (example: fainting, lightheadedness, headaches, nausea, vomiting, tremors, seizures, persistent or worsening knee pain). - Post Discharge Activity
[2019-12-22 16:18] VITALS: BP 110/67; TEMP 98.5
== END 2019-12-22 16:16 ==
LOC: JER 11:33
DX: M25.561 Pain in right knee (principal); W19.XXXA Unspecified fall, initial encounter
CPT/HCPCS: 70450-TC; 73562-TC-RT-FY; 99285-25

== ENCOUNTER 2019-12-27 12:06 | Inpatient (IN) | payer OTHER ==
--- NOTE | 2019-12-27 13:04 | BHS.RME ---
Physical/Psych/Mental Status - Behavior General Behavior: Increased activity (restlessness, agitation) Eye Contact: Normal - Cooperativeness Cooperativeness: Cooperative - Thinking Thought Processes: Tight, Logical, Goal Directed - Physical Health Problems Is patient presently having any pain?: No Does patient presently have any injuries (include location): No Does patient currently have a fever: No Is patient : No CIWA Nausea/Vomitin Muscle Tremors: 4-Moderate,w/Arms Extend Anxiety: 3 Agitation: 3 Paroxysmal Sweats: 2 Orientation: 0-Oriented Tacttile Disturbances: 0-None Auditory Disturbances: 0-None Visual Disturbances: 0-None Headache: 0-None Present CIWA-Ar Total Score: 17
[2019-12-27 13:34] VITALS: BMI 26.2
--- NOTE | 2019-12-27 13:50 | HP ---
CIWA Score Nausea/Vomitin Muscle Tremors: 4-Moderate,w/Arms Extend Anxiety: 3 Agitation: 3 Paroxysmal Sweats: 2 Orientation: 0-Oriented Tacttile Disturbances: 0-None Auditory Disturbances: 0-None Visual Disturbances: 0-None Headache: 0-None Present CIWA-Ar Total Score: 17 - Admission Criteria OASAS Guidelines: Admission for Medically Managed Detox: Requires at least one of the followin. CIWA greater than 12 2. Seizures within the past 24 hours 3. Delirium tremens within the past 24 hours 4. Hallucinations within the past 24 hours 5. Acute intervention needed for co occurring medical disorder 6. Acute intervention needed for co occurring psychiatric disorder 7. Severe withdrawal that cannot be handled at a lower level of care (continued vomiting, continued diarrhea, abnormal vital signs) requiring intravenous medication and/or fluids 8. Admitting History and Physical - Admission Chief Complaint: " I need to go back to detox because there was no rehab bed. I was here yesterday and could not get in." History of Present Illness: 44 year old male with history alcohol dependence with prior detox from 12/18- 12/24/19 completed detox but there was no rehab available for him to go to. He immediately relapsed after being discharged. Alcohol: 2 liters of vodka daily, started drinking at the age of 29 and last drank 12/26/19 and endorses the need for an eye lpn cma to stave off withdrawals. Denies all other substances of abuse. Urine Tox: BZO due to prior detox CIWA=17 DAISY: 0.156 He lives in [place] with a roommate and has no legal issues pending. He meets criteria for detox as he has medical co-morbidities and is in withdrawals. 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 History of Recent Travel: No Admission ROS S - [facility] Allergies/Adverse Reactions: Allergies Allergy/AdvReac Type Severity Reaction Status Date / Time No Known Allergies Allergy Verified 12/27/19 13:16 Exam Limitations: No Limitations - Ebola screening Have you traveled outside of the country in the last 21 days: No Have you had contact with anyone from an Ebola affected area: No Have you been sick,other than usual withdrawal symptoms: No Do you have a fever: No - Review of Systems Constitutional: Chills, Diaphoresis EENT: reports: No Symptoms Reported Respiratory: reports: No Symptoms reported Cardiac: reports: No Symptoms Reported GI: reports: No Symptoms Reported : reports: No Symptoms Reported Musculoskeletal: reports: No Symptoms Reported Integumentary: reports: No Symptoms Reported Neuro: reports: No Symptoms reported Endocrine: reports: No Symptoms Reported Hematology: reports: No Symptoms Reported Psychiatric: reports: Judgement Intact, Mood/Affect Appropiate, Orientated x3, Agitated, Anxious Other Systems: Reviewed and Negative Patient History - Patient Medical History Hx Anemia: No Hx Asthma: No Hx Chronic Obstructive Pulmonary Disease (COPD): No Hx Cancer: No Hx Cardiac Disorders: No Hx Congestive Heart Failure: No Hx Hypertension: Yes (NO MED) Hx Hypercholesterolemia: No Hx Pacemaker: No HX Cerebrovascular Accident: No Hx Seizures: No Hx Dementia: No Hx Diabetes: No Hx Gastrointestinal Disorders: No Hx Liver Disease: No Hx Genitourinary Disorders: No Hx Sexually Transmitted Disorders: No Hx Renal Disease (ESRD): No Hx Thyroid Disease: No Hx Human Immunodeficiency Virus (HIV): No Hx Hepatitis C: No Hx Depression: No Hx Suicide Attempt: No Hx Bipolar Disorder: No Hx Schizophrenia: No - Patient Surgical History Past Surgical History: No Hx Neurologic Surgery: No Hx Cataract Extraction: No Hx Cardiac Surgery: No Hx Lung Surgery: No Hx Breast Surgery: No Hx Breast Biopsy: No Hx Abdominal Surgery: No Hx Appendectomy: No Hx Cholecystectomy: No Hx Genitourinary Surgery: No Hx Section: No Hx Orthopedic Surgery: No Anesthesia Reaction: No - PPD History Previous Implant?: Yes Documented Results: Negative w/proof Implanted On Prior R Admission?: Yes Date: 12/21/19 Results: 0MM PPD to be Administered?: No - Smoking Cessation Smoking history: Never smoked Have you smoked in the past 12 months: No If you are a former smoker, when did you quit?: 20 Cigars Per Day: 0 Hx Chewing Tobacco Use: No Initiated information on smoking cessation: No - Substances abused Alcohol Substance route: Oral Frequency: Daily Amount used: 2 L [place] Age of first use: 29 Date of last use: 12/27/19 Admission Physical Exam [facility] - Vital Signs Vital Signs: Vital Signs - 24 hr 12/27/19 13:29 Temperature 98.7 F Pulse Rate 107 H Respiratory 17 Rate Blood Pressure 141/95 - Physical General Appearance: Yes: Mild Distress, Irritable, Sweating, Anxious HEENTM: Yes: EOMI, Hearing grossly Normal, Normal ENT Inspection, Normocephalic, Normal Voice, [place], Pharynx Normal, Tm's normal Respiratory: Yes: Chest Non-Tender, Lungs Clear, Normal Breath Sounds, No Respiratory Distress, No Accessory Muscle Use Neck: Yes: No masses,lesions,Nodules, Supple, Trachea in good position Breast: Yes: Within Normal Limits Cardiology: Yes: Regular Rhythm, Regular Rate, S1, S2 Abdominal: Yes: Normal Bowel Sounds, Non Tender, Flat, Soft Genitourinary: Yes: Within Normal Limits Back: Yes: Normal Inspection Musculoskeletal: Yes: full range of Motion, Gait Steady, Pelvis Stable Extremities: Yes: Normal Capillary Refill, Normal Inspection, Normal Range of Motion, Non-Tender 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 NML intact, Fully Oriented, Alert, Motor Strength 5/5, Normal Mood/Affect, Normal Response Integumentary: Yes: Normal Color, Dry Lymphatic: Yes: Within Normal Limits - Diagnostic (1) Alcohol dependence with withdrawal, uncomplicated Current Visit: Yes Status: Acute (2) Elevated blood pressure reading Current Visit: Yes Status: Chronic (3) GERD (gastroesophageal reflux disease) Current Visit: Yes Status: Chronic Qualifiers: Esophagitis presence: without esophagitis Qualified Code(s): K21.9 - Gastro-esophageal reflux disease without esophagitis (4) Hypertension Current Visit: Yes Status: Chronic Qualifiers: Hypertension type: essential hypertension Qualified Code(s): I10 - Essential (primary) hypertension (5) Belarusian speaking patient Current Visit: Yes Status: Chronic Cleared for Admission [facility] - Detox or Rehab [facility] Level of Care: Medically Managed Detox Regimen/Protocol: Librium Claeared for Rehab Admission: No Screened but not Admitted - Documentation of Visit Screened but not Admitted: No Breathalyzer - Breathalyzer Breathalyzer: 0.156 Urine Drug Screen - Test Device Lot number: [id number] Expiration date: 01/02/22 - Control Is test valid?: Yes - Results Drug screen NEGATIVE: No Urine drug screen results: BZO-Benzodiazepines Inpatient Rehab Admission - Rehab Decision to Admit Inpatient rehab admission?: No
[2019-12-27] MEDS ORDERED: MENTHOL/PHENOL 1 EACH UD MM PRN (13:58)
[2019-12-27] MEDS ORDERED: IBUPROFEN 400 MG TABLET (FP) PO PRN (13:58)
[2019-12-27] MEDS ORDERED: BISMUTH SUBSALICYLATE 262 MG/15 ML BTL PO PRN (13:58)
[2019-12-27] MEDS ORDERED: MAGNESIUM HYDROX 2400MG/30ML ORAL SUSPENSION 30 ML CUP PO PRN (13:58)
[2019-12-27] MEDS ORDERED: NICOTINE POLACRILEX 2 MG GUM BUC PRN (13:58)
[2019-12-27] MEDS ORDERED: MAG HYDROX/AL HYDROX/SIMETH 30 ML UNIT-DOSE CUP PO PRN (13:58)
[2019-12-27] MEDS ORDERED: ONDANSETRON *ODT* 4 MG TABLET SL ONE (13:58)
[2019-12-27] MEDS ORDERED: ACETAMINOPHEN 325 MG TABLET (FP) PO PRN ×2 (13:58)
[2019-12-27] MEDS ORDERED: METHOCARBAMOL 500 MG TABLET PO PRN (13:58)
[2019-12-27] MEDS ORDERED: MAGNESIUM CITRATE 300 ML BOTTLE PO PRN (13:58)
[2019-12-27] MEDS: PRENATAL VITAMINS W/ FOLIC ACID TABLET (FP) PO SCH (15:04)
[2019-12-27] MEDS: hydrOXYzine PAMOATE 25 MG CAPSULE (FP) PO SCH ×3 (15:04→22:44)
[2019-12-27] MEDS: chlordiazePOXIDE HCL 25 MG CAPSULE PO PRN (15:04)
[2019-12-27] MEDS: NICOTINE 7 MG/24 HOURS TOPICAL PATCH TD SCH (15:04)
[2019-12-27] MEDS: chlordiazePOXIDE HCL 25 MG CAPSULE PO SCH ×2 (17:21→22:43)
[2019-12-27] MEDS: THIAMINE HCL 100 MG TABLET (FP) PO SCH (22:43)
[2019-12-27] MEDS: MELATONIN 5 MG TABLETS PO SCH (22:44)
[2019-12-28] MEDS: hydrOXYzine PAMOATE 25 MG CAPSULE (FP) PO SCH ×5 (05:46→21:51)
[2019-12-28] MEDS: chlordiazePOXIDE HCL 25 MG CAPSULE PO SCH ×4 (05:46→22:06)
--- NOTE | 2019-12-28 09:24 | PN ---
[facility] CIWA - CIWA Score Nausea/Vomitin-Mild Nausea/No Vomiting Muscle Tremors: 3 Anxiety: 3 Agitation: 3 Paroxysmal Sweats: No Perspiration Orientation: 0-Oriented Tacttile Disturbances: 1-Very Mild Itch/Numbness Auditory Disturbances: 0-None Visual Disturbances: 0-None Headache: 2-Mild CIWA-Ar Total Score: 13 [facility] Progress Note (SOAP) Subjective: alert,irritable,anxious,interrupted sleep,tremor,nausea,aching pain in the body and back Objective: 12/28/19 09:23 Vital Signs Temperature 97.5 F L 12/28/19 08:32 Pulse Rate 83 12/28/19 08:32 Respiratory Rate 20 12/28/19 08:32 Blood Pressure 134/84 12/28/19 08:32 O2 Sat by Pulse Oximetry (%) 97 12/28/19 05:41 Laboratory Last Values COVID-19 (JOSHUA) Not detected (Not Detected) 12/27/19 14:30 Assessment: 12/28/19 09:24 withdrawal symptom Plan: continue detox librium regimen
[2019-12-28] MEDS: PRENATAL VITAMINS W/ FOLIC ACID TABLET (FP) PO SCH (10:09)
[2019-12-28] MEDS: NICOTINE 7 MG/24 HOURS TOPICAL PATCH TD SCH (10:09)
[2019-12-28] MEDS: chlordiazePOXIDE HCL 25 MG CAPSULE PO PRN (15:44)
[2019-12-28] MEDS ORDERED: METOPROLOL TARTRATE 50 MG TABLET (FP) PO ONE (17:29)
--- NOTE | 2019-12-28 17:30 | PN ---
S Progress Note Note: called by nursing for pt w/ elevated bP Per MR , pt w/ h/o HTN . Vital Signs - 24 hr 12/27/19 12/28/19 12/28/19 21:00 05:41 08:32 Temperature 97.5 F L 97.7 F 97.5 F L Pulse Rate 106 H 66 83 Respiratory 18 18 20 Rate Blood Pressure 148/97 128/88 134/84 O2 Sat by Pulse 96 97 Oximetry (%) 12/28/19 12/28/19 12/28/19 12:36 15:15 16:31 Temperature 97.5 F L 97.3 F L Pulse Rate 100 H 92 H 100 H Respiratory 18 18 Rate Blood Pressure 153/98 156/105 H 172/112 H O2 Sat by Pulse 97 Oximetry (%) P : Metoprolol 25 mg stat changed regular diet to Low Sodium diet
[2019-12-28] MEDS ORDERED: cloNIDine HCL 0.1 MG TABLET PO ONE (21:37)
--- NOTE | 2019-12-28 21:39 | PN ---
S Progress Note Note: Patient's blood pressure is B/P 164/108. Patient is asymptomatic Vital Signs Temperature 97.7 F 12/28/19 20:44 Pulse Rate 80 12/28/19 20:44 Respiratory Rate 18 12/28/19 20:44 Blood Pressure 164/108 H 12/28/19 20:44 O2 Sat by Pulse Oximetry (%) 100 12/28/19 20:44 Action: Clonidine 0.1mg tablet oral ordered
[2019-12-28] MEDS: MELATONIN 5 MG TABLETS PO SCH (21:51)
[2019-12-28] MEDS: THIAMINE HCL 100 MG TABLET (FP) PO SCH (21:52)
[2019-12-29] MEDS: chlordiazePOXIDE HCL 25 MG CAPSULE PO SCH ×4 (05:25→22:20)
[2019-12-29] MEDS: hydrOXYzine PAMOATE 25 MG CAPSULE (FP) PO SCH ×5 (05:25→22:20)
[2019-12-29] MEDS: HYDROCHLOROTHIAZIDE 25 MG TABLET (FP) PO SCH (10:24)
[2019-12-29] MEDS: PRENATAL VITAMINS W/ FOLIC ACID TABLET (FP) PO SCH (10:25)
[2019-12-29] MEDS: NICOTINE 7 MG/24 HOURS TOPICAL PATCH TD SCH (10:25)
--- NOTE | 2019-12-29 10:25 | PN ---
S CIWA - CIWA Score Nausea/Vomitin-Mild Nausea/No Vomiting Muscle Tremors: 2 Anxiety: 2 Agitation: 2 Paroxysmal Sweats: No Perspiration Orientation: 0-Oriented Tacttile Disturbances: 1-Very Mild Itch/Numbness Auditory Disturbances: 0-None Visual Disturbances: 0-None Headache: 1-Very Mild CIWA-Ar Total Score: 9 [facility] Progress Note (SOAP) Subjective: alert,irritable,anxious,interrupted sleep,tremor,aching pain in the body and back Objective: 12/29/19 10:20 Vital Signs Temperature 97.3 F L 12/29/19 08:59 Pulse Rate 89 12/29/19 08:59 Respiratory Rate 18 12/29/19 08:59 Blood Pressure 143/92 12/29/19 08:59 O2 Sat by Pulse Oximetry (%) 97 12/29/19 06:23 Assessment: 12/29/19 10:20 withdrawal symptom Plan: continue detox librium regimen,patient has persistent elevation of blood pressure,combination of withdrawal and may be hypertension, patient has been on no added salt diet,on librium regimen detox,will give hydroclorothiazide 25 mgs po daily, close monitoring on vital signs,advise follow up with medical provider for evaluation and follow up on bp will order blood test for cbc,cmp in am encourage patient to go to rehab after detox
[2019-12-29] MEDS: chlordiazePOXIDE HCL 25 MG CAPSULE PO PRN (14:07)
[2019-12-29] MEDS: THIAMINE HCL 100 MG TABLET (FP) PO SCH (22:20)
[2019-12-29] MEDS: MELATONIN 5 MG TABLETS PO SCH (22:20)
[2019-12-30] MEDS ORDERED: chlordiazePOXIDE HCL 10 MG CAPSULE PO PRN
[2019-12-30] MEDS: hydrOXYzine PAMOATE 25 MG CAPSULE (FP) PO SCH ×5 (06:01→22:25)
[2019-12-30] MEDS: chlordiazePOXIDE HCL 10 MG CAPSULE PO SCH ×4 (06:01→22:25)
[2019-12-30] MEDS: PRENATAL VITAMINS W/ FOLIC ACID TABLET (FP) PO SCH (10:09)
[2019-12-30] MEDS: NICOTINE 7 MG/24 HOURS TOPICAL PATCH TD SCH (10:09)
[2019-12-30] MEDS: HYDROCHLOROTHIAZIDE 25 MG TABLET (FP) PO SCH (10:09)
--- NOTE | 2019-12-30 10:10 | PN ---
S CIWA - CIWA Score Nausea/Vomitin-Mild Nausea/No Vomiting Muscle Tremors: 2 Anxiety: 2 Agitation: 2 Paroxysmal Sweats: No Perspiration Orientation: 0-Oriented Tacttile Disturbances: 1-Very Mild Itch/Numbness Auditory Disturbances: 0-None Visual Disturbances: 0-None Headache: 1-Very Mild CIWA-Ar Total Score: 9 S Progress Note (SOAP) Subjective: alert,irritable,anxious,interrupted sleep,aching pain in the body and back Objective: 12/30/19 10:08 Vital Signs Temperature 97.2 F L 12/30/19 08:45 Pulse Rate 99 H 12/30/19 08:45 Respiratory Rate 20 12/30/19 08:45 Blood Pressure 131/90 12/30/19 08:45 O2 Sat by Pulse Oximetry (%) 98 12/30/19 06:25 Assessment: 12/30/19 10:08 withdrawal symptom Plan: continue detox librium regimen,on no added salt diet,on hydrochlorothiazide 25 mgs po daily,close monitoring of vital sign and bp, plan for rehab after detox
[2019-12-30 10:20] LABS: HEMATOCRIT 45.4 % (35.4-49); HEMOGLOBIN 15.6 GM/dL (11.7-16.9); MCH 32.5 pg (25.7-33.7); MCHC 34.3 g/dl (32.0-35.9); MEAN CELL VOLUME 94.6 fl (80-96); MEAN PLT VOLUME 8.3 fl (7.5-11.1); PLATELET COUNT 315 K/MM3 (134-434); WHITE BLOOD COUNT 6.4 K/mm3 (4.0-10.0)
[2019-12-30 10:22] LABS: BLOOD UREA NITROGEN 13.5 mg/dL (7-18); CALCIUM 9.6 mg/dL (8.5-10.1); POTASSIUM 3.8 mmol/L (3.5-5.1)
[2019-12-30 10:27] LABS: BILIRUBIN,TOTAL 0.7 mg/dL (0.2-1); CREATININE 1.1 mg/dL (0.55-1.3); TOT PROT 7.8 g/dl (6.4-8.2)
[2019-12-30] MEDS ORDERED: cloNIDine HCL 0.1 MG TABLET PO ONE (21:29)
--- NOTE | 2019-12-30 21:31 | PN ---
[facility] Progress Note Note: Patient's blood pressure is B/P 152/110. Patient is asymptomatic. Vital Signs Temperature 97.5 F L 12/30/19 20:47 Pulse Rate 98 H 12/30/19 20:47 Respiratory Rate 18 12/30/19 20:47 Blood Pressure 152/110 H 12/30/19 20:47 O2 Sat by Pulse Oximetry (%) 96 12/30/19 20:47 Action: Clonidine 0.1mg tablet oral ordered
[2019-12-30] MEDS: THIAMINE HCL 100 MG TABLET (FP) PO SCH (22:25)
[2019-12-30] MEDS: MELATONIN 5 MG TABLETS PO SCH (22:26)
[2019-12-31] MEDS: chlordiazePOXIDE HCL 10 MG CAPSULE PO SCH ×2 (05:34→17:39)
[2019-12-31] MEDS: hydrOXYzine PAMOATE 25 MG CAPSULE (FP) PO SCH ×5 (05:34→22:21)
[2019-12-31] MEDS: HYDROCHLOROTHIAZIDE 25 MG TABLET (FP) PO SCH (10:31)
[2019-12-31] MEDS: NICOTINE 7 MG/24 HOURS TOPICAL PATCH TD SCH (10:31)
[2019-12-31] MEDS: PRENATAL VITAMINS W/ FOLIC ACID TABLET (FP) PO SCH (10:31)
--- NOTE | 2019-12-31 11:03 | PN ---
[facility] CIWA - CIWA Score Nausea/Vomitin-No Nausea/No Vomiting Muscle Tremors: None Anxiety: 2 Agitation: 0-Normal Activity Paroxysmal Sweats: 2 Orientation: 0-Oriented Tacttile Disturbances: 0-None Auditory Disturbances: 0-None Visual Disturbances: 0-None Headache: 0-None Present CIWA-Ar Total Score: 4 S Progress Note (SOAP) Subjective: c/o mild withdrawal symptoms. Objective: 12/31/19 11:02 Vital Signs 12/31/19 12/31/19 06:39 08:56 Temperature 97.5 F L 97.3 F L Pulse Rate 74 110 H Respiratory 18 18 Rate Blood Pressure 117/74 134/85 O2 Sat by Pulse 97 Oximetry (%) Laboratory Last Values WBC 6.4 K/mm3 (4.0-10.0) 12/30/19 07:30 RBC 4.80 M/mm3 (4.00-5.60) 12/30/19 07:30 Hgb 15.6 GM/dL (11.7-16.9) 12/30/19 07:30 Hct 45.4 % (35.4-49) 12/30/19 07:30 MCV 94.6 fl (80-96) 12/30/19 07:30 MCH 32.5 pg (25.7-33.7) 12/30/19 07:30 MCHC 34.3 g/dl (32.0-35.9) 12/30/19 07:30 RDW 14.0 % (11.9-15.9) 12/30/19 07:30 Plt Count 315 K/MM3 (134-434) D 12/30/19 07:30 MPV 8.3 fl (7.5-11.1) 12/30/19 07:30 Sodium 139 mmol/L (136-145) 12/30/19 07:30 Potassium 3.8 mmol/L (3.5-5.1) 12/30/19 07:30 Chloride 100 mmol/L (98-107) 12/30/19 07:30 Carbon Dioxide 28 mmol/L (21-32) 12/30/19 07:30 Anion Gap 11 MMOL/L (8-16) 12/30/19 07:30 BUN 13.5 mg/dL (7-18) 12/30/19 07:30 Creatinine 1.1 mg/dL (0.55-1.3) 12/30/19 07:30 Est GFR (CKD-EPI)AfAm 93.47 12/30/19 07:30 Est GFR (CKD-EPI)NonAf 80.64 12/30/19 07:30 Random Glucose 90 mg/dL (74-106) 12/30/19 07:30 Calcium 9.6 mg/dL (8.5-10.1) 12/30/19 07:30 Total Bilirubin 0.7 mg/dL (0.2-1) 12/30/19 07:30 AST 23 U/L (15-37) 12/30/19 07:30 ALT 50 U/L (13-61) 12/30/19 07:30 Alkaline Phosphatase 73 U/L (45-117) 12/30/19 07:30 Total Protein 7.8 g/dl (6.4-8.2) 12/30/19 07:30 Albumin 4.0 g/dl (3.4-5.0) 12/30/19 07:30 COVID-19 (JOSHUA) Not detected (Not Detected) 12/27/19 14:30 Labs noted. Assessment: 12/31/19 11:02 AOX3, in no acute respiratory distress. Full ROM, ambulating in the unit. Mild Withdrawal symptoms. For d/c tomorrow. Plan: continue detox. D/C in AM.
[2019-12-31] MEDS: THIAMINE HCL 100 MG TABLET (FP) PO SCH (22:21)
[2019-12-31] MEDS: MELATONIN 5 MG TABLETS PO SCH (22:21)
[2020-01-01] MEDS ORDERED: chlordiazePOXIDE HCL 10 MG CAPSULE PO ONE (05:00)
[2020-01-01] MEDS: hydrOXYzine PAMOATE 25 MG CAPSULE (FP) PO SCH ×2 (05:15→09:53)
--- NOTE | 2020-01-01 09:14 | DS ---
[facility] Detox Discharge Summary Admission Date: 12/27/19 Discharge Date: 01/01/20 - History Present History: Alcohol Dependence Additional Comments: 44 years old male admitted on 12/27/19 for alcohol withdrawal sx management treated with librium detox regiment mr guerrero has completed the librium regiment and is tolerated well alert oriented x 3 speech clearly coherently cardiac s1s2 regular rate 86/minutes rhythm Vital Signs - 24 hr 12/31/19 12/31/19 12/31/19 12:38 16:32 21:03 Temperature 97.1 F L 97.3 F L 97.3 F L Pulse Rate 116 H 107 H 102 H Respiratory 18 18 18 Rate Blood Pressure 143/87 147/88 143/94 O2 Sat by Pulse 96 96 Oximetry (%) 01/01/20 01/01/20 05:05 08:36 Temperature 97.3 F L 97.1 F L Pulse Rate 72 86 Respiratory 18 18 Rate Blood Pressure 118/67 144/96 O2 Sat by Pulse 97 Oximetry (%) respiratory clear lung sounds bilaterally on auscultation abdomen soft no rebound tenderness Pertinent Past History: time for discharge 40 minutes transferred order sent from detox to rehab - Physical Exam Results Vital Signs: Vital Signs Temperature 97.3 F L 01/01/20 05:05 Pulse Rate 72 01/01/20 05:05 Respiratory Rate 18 01/01/20 05:05 Blood Pressure 118/67 01/01/20 05:05 O2 Sat by Pulse Oximetry (%) 97 01/01/20 05:05 Pertinent Admission Physical Exam Findings: alcohol withdrawal Laboratory Tests 12/27/19 12/30/19 12/30/19 14:30 07:30 07:30 WBC 6.4 RBC 4.80 Hgb 15.6 Hct 45.4 MCV 94.6 MCH 32.5 MCHC 34.3 RDW 14.0 Plt Count 315 D MPV 8.3 Sodium 139 Potassium 3.8 Chloride 100 Carbon Dioxide 28 Anion Gap 11 BUN 13.5 Creatinine 1.1 Est GFR (CKD-EPI)AfAm 93.47 Est GFR (CKD-EPI)NonAf 80.64 Random Glucose 90 Calcium 9.6 Total Bilirubin 0.7 AST 23 ALT 50 Alkaline Phosphatase 73 Total Protein 7.8 Albumin 4.0 COVID-19 (JOSHUA) Not detected lab noted - Treatment Hospital Course: Detox Protocol Followed, Detoxed Safely, Responded well, Discharged Condition Good, Rehab Referral Accepted Patient has Accepted a Rehab Referral to: [facility] - Medication Discharge Medications: Ambulatory Orders NK [No Known Home Medication] 12/27/19 - Diagnosis (1) Alcohol dependence with withdrawal, uncomplicated Status: Acute (2) GERD (gastroesophageal reflux disease) Status: Chronic Qualifiers: Esophagitis presence: without esophagitis Qualified Code(s): K21.9 - Gastro-esophageal reflux disease without esophagitis (3) Hypertension Status: Chronic Qualifiers: Hypertension type: essential hypertension Qualified Code(s): I10 - Essential (primary) hypertension - AMA Did Patient Leave Against Medical Advice: No CIWA Score - CIWA Score Nausea/Vomitin-No Nausea/No Vomiting Muscle Tremors: None Anxiety: 1-Mildly Anxious Agitation: 0-Normal Activity Paroxysmal Sweats: 1-Minimal Palms Moist Orientation: 0-Oriented Tacttile Disturbances: 0-None Auditory Disturbances: 0-None Visual Disturbances: 0-None Headache: 0-None Present CIWA-Ar Total Score: 2
[2020-01-01 09:18] VITALS: BP 144/96; PULSE 86; TEMP 97.1
[2020-01-01] MEDS: HYDROCHLOROTHIAZIDE 25 MG TABLET (FP) PO SCH (09:52)
[2020-01-01] MEDS: PRENATAL VITAMINS W/ FOLIC ACID TABLET (FP) PO SCH (09:52)
[2020-01-01] MEDS: NICOTINE 7 MG/24 HOURS TOPICAL PATCH TD SCH (09:53)
[2020-01-01] MEDS ORDERED: amLODIPine BESYLATE 10 MG TABLET (FP) PO SCH (10:00)
== END 2020-01-01 11:16 | disposition other institution (70) | DRG 775 ==
LOC: YASAS 12:06 → Y3N 13:58
PROVIDERS: ADMIT Allergy & Immunology; ATTEND Allergy & Immunology
PROC: HZ2ZZZZ Detoxification Services for Substance Abuse Treatment (ICD-10-PCS; principal; 2019-12-27)
DX: F10.230 Alcohol dependence with withdrawal, uncomplicated (principal); I10 Essential (primary) hypertension; K21.9 Gastro-esophageal reflux disease without esophagitis
CPT/HCPCS: 36415; 80053; 85027; J0735; U0003